=== PATIENT | male | born 1965 | race Caucasian/White ===

== ENCOUNTER 2017-03-01 08:51 | Inpatient (IN) | payer MEDICARE, MEDICAID ==
[~2017-03-01] VITALS: Ht 162.6 cm; Wt 82.8 kg
[~2017-03-01 08:51] MED LIST: ALDACTONE 25MG25 MG PO; ASPIRIN81 MG PO; BUMETANIDE2 MG PO; COREG6.25 MG PO; COUMADIN 5MG TAB5 MG PO; LOSARTAN POTASS50 MG PO; MELOXICAM15 MG PO; METOLAZONE2.5 MG PO; NEURONTIN 300M300 MG PO; NOVOLIN 70/30 710 ML SC; NOVOLOG FLEX100 U/ML SC; PRAVACHOL 40MG40 MG PO; SPIRONOLACTONE25 MG PO; TIZANIDINE HCL2 MG PO; TRAMADOL 50MG T50 M1 PO; TRAZODONE50 MG PO; TYLENOL ES500 MG PO; ZAROXOLYN 2.5M2.5 MG PO; ZOFRAN4 MG PO; [UNRECOGNIZED DRUG - OTHER] IM
[2017-03-01 08:53] VITALS: BP 92/58
--- NOTE | 2017-03-01 09:00 | Emergency Room Report ---
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 Clinical Suspician of Infection? Mental Status: Sepsis Risk: Have you (or family members/close friends) recently traveled outside the [place]? If Yes, where/when: Have you had exposure to infectious disease within the past month? TB? Other? Specify: Source patient, EMS Exam Limitations no limitations Comment Pt is here in the ER via EMS from assisted living. Pt was sitting getting ready to have breakfast when he felt lightheaded and had a brief syncopal episode. No seizure activity. BS normal. No chest pain, sob, abdominal pain. Pt noted to have bilateral leg swelling. Pt is not taking any diuretics. He states the swelling has been increasing. No calf pain. No headache. BP 92 systolic in ER. Pt also denies blood in stool and dark stools. Pt has CAD, ND x 3 history, and has a pacer/defibrillator. ALLERGIES Coded Allergies: hydromorphone (Mild, 02/19/17) Home Medications Reported Medications Aspirin 81 MG PO DAILY Bumetanide 2 MG PO DAILY Losartan Potassium (Losartan 25MG) 25 MG PO DAILY Meloxicam (Meloxicam 15MG) 15 MG PO DAILY Metolazone 2.5 MG PO DAILY PRAVASTATIN SODIUM (Pravastatin Sodium) 40 MG PO QHS Trazodone Hcl (Trazodone HCl) 50 MG PO QHS ONDANSETRON HCL (Zofran 4MG Tab) 4 MG PO TIDP Gabapentin (Neurontin 300MG) 300 MG PO TID Insulin Aspart, Recombinant (Novolog Flexpen) 40 UNITS SC DAILY Pioglitazone (Actos 15MG) 15 MG PO DAILY Ins Asp-Prt 70/Asp 30(Nvlogmx) (Novolog Mix 70-30 Flexpen Syrn) 25 UNITS SC QPM Discontinued Reported Medications TRAMADOL HCL (Tramadol) 100 MG PO Q6HP PRN PAIN History Medical History General CAD? No Angina: Yes ND: Yes Hypertension? Yes Hyperlipidemia? Yes CHF? Yes DVT? No PE? No COPD? No Asthma? No Anemia? No GERD? No Gastric ulcers? No GI Bleed? No Hernia? No Thyroid Problems? No Hypothyroidism? No CVA? Yes Seizures? No Diabetes? Yes Insulin Dependent: Yes Insulin Pump: No Home FSBS? Yes Renal Insuffiency? No End Stage Renal Disease? No UTI? No Stones? No BPH? No GB Disease: No Nephritic Syndrome? No Asplenia? No Hepatitis? No Sickle Cell Disease? No Arthritis? No Migraines? No Cataracts? No Glaucoma? No MRSA? No HIV? No TB? No Anxiety? No Depression? No Cancer? No More? No Immunization Hx DT/Tetanus > 10 YRS Pneumonia Never Had Surgical Hx Previous Surgery?Y Hernia Repair PACEMAKER/DEFIBRILATOR Family History Family Hx Diabetes Yes CAD Yes Hypertension Yes Hyperlipidemia Yes Cancer No TB No Social History Smoking Hx Smoker: Unknown if Ever Smoked Alcohol Alcohol: No Review of Systems All Other Systems Reviewed and Negative Constitutional weakness Eyes denies no symptoms reported ENT denies: no symptoms reported. Respiratory denies no symptoms reported Cardiovascular denies no symptoms reported Gastrointestinal denies no symptoms reported Genitourinary denies: no symptoms reported. Musculoskeletal see HPI, other (bilateral leg swelling) Skin denies no symptoms reported Psychiatric/Neurological see HPI, other (passed out) Physical Exam Vital Signs Vital Signs Date Time Temp Pulse Resp B/P Pulse O2 O2 Flow FiO2 Ox Delivery Rate 03/01 1254 98.6 61 16 102/42 96 2 03/01 1214 98.6 64 16 97/55 96 2 03/01 1128 75 20 119/76 98 03/01 1000 98.6 65 16 101/55 96 2 03/01 0925 98.6 76 18 94/56 97 2 03/01 0912 93 03/01 0853 98.6 80 18 92/58 93 - WBC >12,000 or <4,000 or 10% bands? 2 or more SIRS Criteria Met? B/P:94/ MAP:69 Creatinine >2.0? UA output<0.5ml/kg/hr for 2 hrs? Platelet count >100,000? Lactate >2.0mmol/1? INR >1.2 or PTT > than 60 sec? Evidence of Organ Dysfunction? Provider documented clinical suspician of infection? N Sepsis Criteria Count: 0 Sepsis Risk: Low Sepsis Risk General Appearance no apparent distress Eye Exam - bilateral eye PERRL, bilateral eye EOMI, bilateral eye pale conjunctivae Ear, Nose, Throat hearing grossly normal, normal ENT inspection Neck normal inspection, supple Respiratory Status Yes: trachea midline, chest symmetrical. No: respiratory distress, productive cough. Lung Sounds bilateral: normal breath sounds, lungs clear. 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 No Results/Orders Laboratory Tests 03/01/17 1130: Urine Color YELLOW, Urine Appearance CLEAR, Urine pH 6.0, Ur Specific [place] 1.020, Urine Protein 1+ H, Urine Ketones NEGATIVE, Urine Blood NEGATIVE, Urine Nitrate NEGATIVE, Urine Bilirubin NEGATIVE, Urine Urobilinogen 1.0, Ur Leukocyte Esterase NEGATIVE, Urine RBC 3-5, Urine WBC 5-10, Ur Squamous Epith Cells OCC, Urine Bacteria 2+, Urine Glucose NEGATIVE 03/01/17 0908: Creatine Kinase 163, CK and CKMB Interp 0.6, Troponin I < 0.02, B-Natriuretic Peptide 19, PT 12.2 H, INR 1.14 H 03/01/17 0908: Sodium 135 L, Potassium 3.8, Chloride 99, Carbon Dioxide 29, BUN 47 H, Creatinine 2.2 H, Estimated Creat Clear 50, Estimated GFR (MDRD) 32, Glucose 108 H, Calcium 9.2, Magnesium 2.2, Total Bilirubin 0.8, AST 38 H, ALT 44, Alkaline Phosphatase 108, Total Protein 7.6, Albumin 2.4 L, Globulin 5.2 H, Albumin/Globulin Ratio 0.5 L, D-Dimer 4880 *H, WBC 10.6, RBC 3.44 L, Hgb 10.2 L, Hct 30.6 L, MCV 88.9, RDW 12.6, Plt Count 333, MPV 6.6 L, Gran % 82.0 H, Gran # 8.7 H, Lymphocytes % 9.8 L, Monocytes % 6.5, Eosinophils % 1.3, Basophils % 0.4, Lymphocytes # 1.0, Monocytes # 0.7, Eosinophils # 0.1, Basophils # 0.1, PUBS MCHC 33.4, MCH 29.7, Stool Occult Blood NEGATIVE Current Medication Orders Sig/Manish Start time Last Medication Dose Route Stop Time Status Admin Sodium Chloride 1,000 ML .STK-MED ONE 03/01 0919 DC IV Sodium Chloride 10 ML PRN PRN 03/01 0915 AC IV 03/02 0901 Sodium Chloride 1,000 ML .Q1H1M 03/01 0915 DC 03/01 IV 03/01 1015 0919 Orders Procedure Date/time Status Decision to admit 03/01 1319 Active CULTURE, URINE 03/01 1130 Active VENOUS LOWER EXT AZCK 03/01 1021 Complete 12 LEAD EKG-BESSON (INITIAL) 03/01 0905 Active OXYGEN PER NURSE 03/01 0905 Active URINALYSIS/COMPLETE 03/01 0905 Complete TROPONIN I 03/01 0905 Complete D-DIMER 03/01 0905 Complete CPK 03/01 0905 Complete CKMB 03/01 0905 Complete BRAIN NATRIURETIC PEPTIDE 03/01 0905 Complete ELECTROCARDIOGRAM REQUEST 03/01 0902 Active IV SALINE LOCK 03/01 0902 Active STOOL OCCULT BLOOD 03/01 0902 Active PROTHROMBIN TIME 03/01 0902 Complete MAGNESIUM 03/01 0902 Complete CBC WITH AUTO DIFF 03/01 0902 Complete CHEM 12 PROFILE 03/01 0902 Complete ECHO ADULT 03/01 UNK Active CM/EKG 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 of ischemic chgs Complicating Factors Comment 13:17 All labs, PCXR and EKG reviewed. Case discussed with cardiology YRN Flores from [facility] who did a consult on this pt in the ER. I also discussed case with YRN Conteh and pt will be admitted to Dr. Carrera to observation with telemetry who is covering for Dr. Bowles. Pt having VQ scan now. Cardiology ordered an echocardiogram for today. Pt aware of results of work up, diagnosis and care plan. He agrees, understands and all questions answered. 15:59 VQ scan negative for PE. Departure Departure Time of Disposition 1321 Disposition Still a Patient Clinical Impression Primary Impression: Syncope Qualifiers: Syncope type: unspecified Qualified Code: R55 - Syncope and collapse Secondary Impressions: Cardiomyopathy Chronic anemia Chronic renal insufficiency Qualifiers: Chronic kidney disease stage: unspecified stage Qualified Code: N18.9 - Chronic kidney disease, unspecified Elevated d-dimer Peripheral edema Shortness of breath Condition STABLE Referrals [facility] Discharge Counseling Counseled pt/family regarding diagnosis, test results, Need for admission. ED Critical Care Critical Care No at 1600
[2017-03-01 09:25] LABS: HEMOGLOBIN 10.2 g/dL (14.1-18.0); LYMPH % 9.8 % (10-50)
[2017-03-01 09:26] LABS: STOOL OCCULT BLOOD NEGATIVE (NEG)
[2017-03-01] MEDS ORDERED: ACTOS 15MG TABL15 MG PO (09:38)
[2017-03-01] MEDS ORDERED: NOVOLOG MI100 UNITS1 SC (09:42)
[2017-03-01 11:43] LABS: URINE BILIRUBIN - DIPSTICK NEGATIVE (NEG); URINE BLOOD NEGATIVE (NEG)
[2017-03-01 11:55] LABS: URINE SQUAMOUS CELLS OCC #/hpf (OCC)
--- NOTE | 2017-03-01 11:56 | CARDIOVASCULAR REPORT ---
"Venous Exam Indications: 729.5 Pain in limb. 782.3 Edema. IMPRESSIONS 1. There is no evidence of significant Reflux. 2. No evidence of deep or superficial vein thrombosis involving the right lower extremity and left lower extremity Complete lower extremity venous duplex evaluation. Doppler flow study including spectral analysis, color and garcia scale imaging. Location: Emergency department. Patient status: Emergency department. Tables: Venous flow and imaging: + +-------+ + + |Location |Overall|Flow properties |Comments | + +-------+ + + |Right common femoral |Patent |Normal phasicity; | | | | |spontaneous; normal | | | | |augmentation; | | | | |compressible | | + +-------+ + + |Right saphenofemoral |Patent |Compressible | | |junction | | | | + +-------+ + + |Right profunda femoral|Patent |Compressible | | + +-------+ + + |Right femoral |Patent |Normal phasicity; | | | | |spontaneous; normal | | | | |augmentation; | | | | |compressible; no | | | | |reflux | | + +-------+ + + |Right greater |Patent |Normal phasicity; | | |saphenous | |spontaneous; normal | | | | |augmentation; | | | | |compressible | | + +-------+ + + |Right popliteal |Patent |Normal phasicity; | | | | |spontaneous; normal | | | | |augmentation; | | | | |compressible | | + +-------+ + + |Right posterior tibial|Patent |Compressible |Difficult to image| + +-------+ + + |Right peroneal |Patent |Compressible |Difficult to image| + +-------+ + + |Right gastrocnemius |Patent |Compressible | | + +-------+ + + |Right soleal |Patent |Compressible | | + +-------+ + + |Left common femoral |Patent |Normal phasicity; | | | | |spontaneous; normal | | | | |augmentation; | | | | |compressible | | + +-------+ + + |Left saphenofemoral |Patent |Compressible | | |junction | | | | + +-------+ + + |Left profunda femoral |Patent |Compressible | | + +-------+ + + |Left femoral |Patent |Normal phasicity; | | | | |spontaneous; normal | | | | |augmentation; | | | | |compressible | | + +-------+ + + |Left greater saphenous|Patent |Normal phasicity; | | | | |spontaneous; normal | | | | |augmentation; | | | | |compressible | | + +-------+ + + |Left popliteal |Patent |Normal phasicity; | | | | |spontaneous; normal | | | | |augmentation; | | | | |compressible | | + +-------+ + + |Left posterior tibial |Patent |Compressible |Difficult to image| + +-------+ + + |Left peroneal |Patent |Compressible |Difficult to image| + +-------+ + + |Left gastrocnemius |Patent |Compressible | | + +-------+ + + |Left soleal |Patent |Compressible | | + +-------+ + + (Report amended ) Electronically signed by: Javier Solis [id number]"
--- NOTE | 2017-03-01 12:20 | CONSULT NOTE ---
Standard Demographics Patient Demo Date of Consultation: 03/01/17 Referring Provider: Alexia Carrera MD Reason for Consultation: Syncope, CAD, AICD PRIMARY DIAGNOSIS: Syncope Problem list Problem list: 1. CAD A. History of NV's X 3. Cardiac cath about 2009 without need for intervention per patient. B. [place] AICD placed about 2009 C. History of congestive heart failure 2. Hypertension 3. Hyperlipidemia 4. Diabetes mellitus History of present illness: History of present illness: Pt is here in the ER via EMS from assisted living. Pt was sitting getting ready to have breakfast when he felt lightheaded and had a brief syncopal episode. No seizure activity. BS normal. No chest pain, sob, abdominal pain. Pt noted to have bilateral leg swelling. Pt is not taking any diuretics. He states the swelling has been increasing. No calf pain. No headache. BP 92 systolic in ER. Pt also denies blood in stool and dark stools. Pt has CAD, NV x 3 history, and has a pacer/defibrillator. Above per ER physician. Patient denies any recent chest pain but does complain of recent increase in lower extremity edema and shortness of breath which correlates to recent decrease in diuretic therapy. He does relate a previous history of congestive heart failure. Patient does follow with cardiology with last appointment approximately July or August of last year. Past Medical History: General: Hypertension Yes CVA Yes Seizures No TB No COPD No Asthma No Diabetes Yes Insulin Dependent Yes Insulin Pump No Angina Yes NV Yes Hyperlipidemia Yes Urinary No Cancer No Rheumatic H.D. No Ulcers No MRSA No GB Disease No Past Surgical HX: Previous Surgery?Y Hernia Repair PACEMAKER/DEFIBRILATOR Allergies Coded Allergies: hydromorphone (Mild, 02/19/17) Home medications: Reported Medications Aspirin 81 MG PO DAILY Bumetanide 2 MG PO DAILY Losartan Potassium (Losartan 25MG) 25 MG PO DAILY Meloxicam (Meloxicam 15MG) 15 MG PO DAILY Metolazone 2.5 MG PO DAILY PRAVASTATIN SODIUM (Pravastatin Sodium) 40 MG PO QHS Trazodone Hcl (Trazodone HCl) 50 MG PO QHS ONDANSETRON HCL (Zofran 4MG Tab) 4 MG PO TIDP Gabapentin (Neurontin 300MG) 300 MG PO TID Insulin Aspart, Recombinant (Novolog Flexpen) 40 UNITS SC DAILY Pioglitazone (Actos 15MG) 15 MG PO DAILY Ins Asp-Prt 70/Asp 30(Nvlogmx) (Novolog Mix 70-30 Flexpen Syrn) 25 UNITS SC QPM Discontinued Reported Medications TRAMADOL HCL (Tramadol) 100 MG PO Q6HP PRN PAIN Current Medications: Current Medications Sodium Chloride 1,000 ML .STK-MED ONE IV (DC) Sodium Chloride 10 ML PRN PRN IV Sodium Chloride 1,000 ML .Q1H1M IV (DC) Immunization HX DT/Tetanus > 10 YRS Pneumonia Never Had Family history Family HX Family Hx Insignificant No Diabetes Yes CAD Yes Hypertension Yes Hyperlipidemia Yes Cancer No TB No Social Hx: Smoking HX Tobacco No Alcohol Alcohol: No Hx of Drug Use Drug Use? No Review of systems: Constitutional weakness. Respiratory SOB with excertion. Cardiovascular see HPI, edema Gastrointestinal/Abdominal No no symptoms reported Genitourinary No: no symptoms reported. Musculoskeletal see HPI. Neurological No: no symptoms reported. Exam: Admission Vital Signs: 1ST Vital Signs Result Date Time Pulse Ox 93 03/01 0853 B/P 92/58 03/01 0853 Temp 98.6 03/01 0853 Pulse 80 03/01 0853 Resp 18 03/01 0853 O2 Flow Rate 2 03/01 0925 Last Vital Signs: Vital Signs Result Date Time Pulse Ox 98 03/01 1128 B/P 119/76 03/01 1128 Pulse 75 03/01 1128 Resp 20 03/01 1128 O2 Flow Rate 2 03/01 1000 Temp 98.6 03/01 1000 Exam General appearance: alert, awake, no acute distress Neck: no carotid bruit, enlarged neck precludes adequate visualization of neck veins. Cardiovascular: regular rate & rhythm, physiologic split S2 noted on end expiration Respiratory: decreased breath sounds but without wheezing. Faint basilar rales versus atelectasis ABD: soft, no tenderness Extremities: moves all, 2-3+ pitting edema of the lower extremities with palpable dorsalis pedis pulses. Neuro: alert, intact, oriented Laboratory data: Laboratory Tests 03/01/17 1130: Urine Color YELLOW, Urine Appearance CLEAR, Urine pH 6.0, Ur Specific [place] 1.020, Urine Protein 1+ H, Urine Ketones NEGATIVE, Urine Blood NEGATIVE, Urine Nitrate NEGATIVE, Urine Bilirubin NEGATIVE, Urine Urobilinogen 1.0, Ur Leukocyte Esterase NEGATIVE, Urine RBC 3-5, Urine WBC 5-10, Ur Squamous Epith Cells OCC, Urine Bacteria 2+, Urine Glucose NEGATIVE 03/01/17 0908: Creatine Kinase 163, CK and CKMB Interp 0.6, Troponin I < 0.02, B-Natriuretic Peptide 19, PT 12.2 H, INR 1.14 H 03/01/17 0908: Sodium 135 L, Potassium 3.8, Chloride 99, Carbon Dioxide 29, BUN 47 H, Creatinine 2.2 H, Estimated Creat Clear 50, Estimated GFR (MDRD) 32, Glucose 108 H, Calcium 9.2, Magnesium 2.2, Total Bilirubin 0.8, AST 38 H, ALT 44, Alkaline Phosphatase 108, Total Protein 7.6, Albumin 2.4 L, Globulin 5.2 H, Albumin/Globulin Ratio 0.5 L, D-Dimer 4880 *H, WBC 10.6, RBC 3.44 L, Hgb 10.2 L, Hct 30.6 L, MCV 88.9, RDW 12.6, Plt Count 333, MPV 6.6 L, Gran % 82.0 H, Gran # 8.7 H, Lymphocytes % 9.8 L, Monocytes % 6.5, Eosinophils % 1.3, Basophils % 0.4, Lymphocytes # 1.0, Monocytes # 0.7, Eosinophils # 0.1, Basophils # 0.1, PUBS MCHC 33.4, MCH 29.7, Stool Occult Blood NEGATIVE Microbiology Date/Time Procedure - Status Source Growth 03/01 1130 Urine Culture - RECD URINE CC Plan: Assessment: 1. Syncopal episode. No evidence of ACS or ventricular arrhythmias as etiology. 2. Presumed ischemic cardiomyopathy with automatic implantable cardiac defibrillator placement in the past. Possible CHF with increased LE edema. Check CXR and BNP. No evidence of acute coronary syndrome. 3. CKD, stage III, Cr 2.2 with GFR 32. 4. Diabetes mellitus with proteinuria. 5. History of pulmonary embolus. Patient has an elevated d-dimer today. Lower extremity venous Doppler has been ordered. A VQ scan has been ordered as well. 6. BiVentricular AICD interrogated. No ventricular arrhythmias noted. Device functioning appropriately. No defibrillator firings noted. 7. Anemia Recommendations: 1. Will obtain an echocardiogram to evaluate LEFT ventricular ejection fraction. 2. LE venous dopplers pending. 3. Workup for pulmonary embolus is in progress. 4. Resume diuretics with close monitoring of renal status. 5. Cardiac status stable at this time. at 1355
--- NOTE | 2017-03-01 15:16 | RADIOLOGY REPORT PS360 ---
NUC LUNG VENT PERFUSION HISTORY: Elevated d-dimer, syncopal episode RULE OUT PE ORDERING PHYSICIAN: Mann Carrera MD PATIENT AGE: 51 years COMPARISON: Radiograph same day. DOSE: 34.0 mCi technetium DTPA inhaled 7.55 mCi technetium MAA IV FINDINGS: Homogeneous activity is present within the lung on both the ventilation and perfusion images. No mismatch or segmental defects are evident. IMPRESSION: Within normal limits, No evidence of pulmonary embolus
--- NOTE | 2017-03-01 15:17 | RADIOLOGY REPORT PS360 ---
CHEST(2 VIEWS-NOT PORTABLE) HISTORY: ELEVATED D DIMER, SYNCOPAL EPISODE ORDERING PHYSICIAN: Mann Carrera MD PATIENT AGE: 51 years COMPARISON: 02/22/2017 FINDINGS: Normal heart size. Cardiac pacemaker device is present. No evidence of CHF. Lungs are clear. No acute bony anomalies.. The lungs are clear without infiltrates, suspicious nodules, or pleural effusions. No acute bony abnormalities. IMPRESSION: No change with no acute finding. Cardiac pacemaker device remains in place
[2017-03-01 17:00] VITALS: BP 131/85
[2017-03-01 17:32] VITALS: BP 132/72
[2017-03-01 20:10] VITALS: BP 147/66
[2017-03-01 20:29] VITALS: BP 147/66
[2017-03-02] VITALS (8 sets, daily range): BP systolic 104–159; BP diastolic 55–76
[2017-03-02 08:58] LABS: HEMOGLOBIN 9.5 g/dL (14.1-18.0); LYMPH # 0.9 K/mm3 (0.7-4.5); LYMPH % 9.5 % (10-50)
--- NOTE | 2017-03-02 09:16 | PHARMACY CLINIC NOTE ---
Patient Demographics Patient Demographics Admission date: 03/01/17 Date: 03/02/17 Time: 0915 Allergies Coded Allergies: hydromorphone (Mild, 02/19/17) HEIGHT- FT: 5 IN: 4.00 K.621 VTE General Information Labs: Laboratory Tests 03/02 0850 Hematology Hgb (14.1 - 18.0 g/dL) 9.5 L Hct (42.0 - 52.0 %) 29.0 L Plt Count (142 - 424 K/mm3) 313 Disclaimer The following section includes nursing documentation that has been pulled in for pharmacy review. Patient's VTE score: 5 Patient's VTE Risk: LOW RISK Clinical trial participant? No VTE prophylaxis [id number] VTE prophylaxis ordered? Yes Type of prophylaxis/treatment: KURT at 0915
[2017-03-02 09:25] LABS: BUN 34 mg/dL (7-18); GFR (ESTIMATED) 49 ML/MIN (>60)
--- NOTE | 2017-03-02 09:32 | HISTORY AND PHYSICAL REPORT ---
Demographics: Admit date: 03/02/17 Chief complaint: dizzyness PRIMARY DIAGNOSIS: Syncope Allergies: Coded Allergies: hydromorphone (Mild, 02/19/17) History of present illness: History of present illness: Pt is here in the ER via EMS from assisted living. Pt was sitting getting ready to have breakfast when he felt lightheaded and had a brief syncopal episode. No seizure activity. BS normal. No chest pain, sob, abdominal pain. Pt noted to have bilateral leg swelling. Pt is not taking any diuretics. He states the swelling has been increasing. No calf pain. No headache. BP 92 systolic in ER. Pt also denies blood in stool and dark stools. Pt has CAD, AK x 3 history, and has a pacer/defibrillator. Above per ER physician. Patient denies any recent chest pain but does complain of recent increase in lower extremity edema and shortness of breath which correlates to recent decrease in diuretic therapy. He does relate a previous history of congestive heart failure. Patient does follow with cardiology with last appointment approximately July or August of last year. Past medical history: Family HX Diabetes Yes CAD Yes Hypertension Yes Hyperlipidemia Yes Cancer No TB No Immunization HX DT/Tetanus 5-10 Years Ago Pneumonia Received In Past TB Test in last year Yes Result Negative General CAD? No Angina: Yes AK: Yes Hypertension? Yes Hyperlipidemia? Yes CHF? Yes DVT? No PE? No COPD? No Asthma? No Anemia? No GERD? No Gastric ulcers? No GI Bleed? No Hernia? No Thyroid Problems? No Hypothyroidism? No CVA? Yes Seizures? No Diabetes? Yes Insulin Dependent: Yes Insulin Pump: No Home FSBS? Yes Renal Insuffiency? No UTI? No Stones? No BPH? No GB Disease: No Nephritic Syndrome? No Asplenia? No Hepatitis? No Sickle Cell Disease? No Arthritis? Yes Migraines? No Cataracts? Yes Glaucoma? No MRSA? Yes HIV? No TB? No Anxiety? No Depression? No Cancer? No More? Yes Additional hx: ARRHYTHMIA Past Surgical HX Previous Surgery?Y Hernia Repair PACEMAKER/DEFIBRILATOR CATARACT SURGERY Current home meds: Reported Medications Aspirin 81 MG PO DAILY Losartan Potassium (Losartan 25MG) 25 MG PO DAILY PRAVASTATIN SODIUM (Pravastatin Sodium) 40 MG PO QHS Trazodone Hcl (Trazodone HCl) 50 MG PO QHS ONDANSETRON HCL (Zofran 4MG Tab) 4 MG PO TIDP Gabapentin (Neurontin 300MG) 300 MG PO TID Insulin Aspart, Recombinant (Novolog Flexpen) 40 UNITS SC DAILY Pioglitazone (Actos 15MG) 15 MG PO DAILY Ins Asp-Prt 70/Asp 30(Nvlogmx) (Novolog Mix 70-30 Flexpen Syrn) 25 UNITS SC QPM Discontinued Reported Medications TRAMADOL HCL (Tramadol) 100 MG PO Q6HP PRN PAIN Social Hx: Smoking HX Tobacco No Are you/the child exposed to second-hand smoke: Yes Alcohol Alcohol: No Hx of Drug Use Drug Use? No Patien't marital status is single Patient's support system is good Review of systems: Constitutional see HPI, fever, weakness. Eyes No: drainage. Ears, Nose, Mouth, Throat No ear pain, No epistaxis, No throat pain Respiratory No: cough. Cardiovascular No chest pain, No palpitations Gastrointestinal/Abdominal see HPI, poor appetite, poor fluid intake Genitourinary No: dysuria, frequency, hesitancy, hematuria. Musculoskeletal No: back pain, joint pain, joint swelling, neck pain. Skin No: rash. Neurological No: headache, seizure disorder. Psychiatric No: depressed. Exam: Lab data for last 24 hours: Laboratory Tests 03/02/17 0850: Sodium 133 L, Potassium 4.1, Chloride 100, Carbon Dioxide 26, BUN 34 H, Creatinine 1.5 H, Estimated Creat Clear 73, Estimated GFR (MDRD) 49, Glucose 219 H, Calcium 8.6, Total Bilirubin 0.7, AST 23, ALT 31, Alkaline Phosphatase 91, Troponin I < 0.02, Total Protein 6.7, Albumin 1.9 L, Globulin 4.8 H, Albumin/Globulin Ratio 0.4 L, WBC 9.8, RBC 3.29 L, Hgb 9.5 L, Hct 29.0 L, MCV 88.2, RDW 12.8, Plt Count 313, MPV 6.7 L, Gran % 79.4, Gran # 7.8, Lymphocytes % 9.5 L, Monocytes % 8.6, Eosinophils % 2.2, Basophils % 0.4, Lymphocytes # 0.9, Monocytes # 0.9, Eosinophils # 0.2, Basophils # 0.0, PUBS MCHC 32.7, MCH 28.8 03/01/17 1130: Urine Color YELLOW, Urine Appearance CLEAR, Urine pH 6.0, Ur Specific [place] 1.020, Urine Protein 1+ H, Urine Ketones NEGATIVE, Urine Blood NEGATIVE, Urine Nitrate NEGATIVE, Urine Bilirubin NEGATIVE, Urine Urobilinogen 1.0, Ur Leukocyte Esterase NEGATIVE, Urine RBC 3-5, Urine WBC 5-10, Ur Squamous Epith Cells OCC, Urine Bacteria 2+, Urine Glucose NEGATIVE Microbiology 03/01 1130 URINE CC: Urine Culture - RECD Admission vital signs: 1ST Vital Signs Result Date Time Pulse Ox 93 03/01 08 B/P 92/58 03/01 08 Temp 98.6 03/01 0853 Pulse 80 03/01 0853 Resp 18 03/01 0853 O2 Flow Rate 2 03/01 0925 O2 Delivery ROOM AIR 03/01 1700 Exam General appearance: alert, awake Eyes: anicteric, PERRLA ENT: dry mucous membranes Neck: no JVD Cardiovascular: regular rate & rhythm, murmur Respiratory: no respiratory distress, diminished breath sounds ABD: soft, no tenderness, no guarding, no organomegaly Genitourinary: no hematuria Extremities: no calf tenderness, edema Musculoskeletal: equal muscle strength Skin: dry Neuro: alert, 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 Chronic renal insufficiency 2. Chronic anemia 3. Elevated d-dimer 4. Syncope 5. IDDM (insulin dependent diabetes mellitus) 6. Peripheral edema 7. UTI (urinary tract infection) Plan: will give iv abx and check cultures at 0932
[2017-03-02] MEDS ORDERED: TYLENOL W/CODEI1 TA2 PO (10:06)
[2017-03-02] MEDS ORDERED: ACETAMINOPHEN500 M3 PO (10:07)
[2017-03-02] MEDS ORDERED: IBUPROFEN 600M600 MG PO (10:07)
[2017-03-02] MEDS ORDERED: IMODIUM 2MG. CAP2 MG PO (10:08)
[2017-03-02] MEDS ORDERED: ROBAFEN DM473 ML PO (10:09)
[2017-03-02] MEDS ORDERED: CARVEDILOL6.25 MG PO (10:09)
[2017-03-02] MEDS ORDERED: FISH OIL CONCEN1 SGL PO (10:10)
[2017-03-02] MEDS ORDERED: FLUTICASONE 50M16 GM (10:10)
--- NOTE | 2017-03-02 11:11 | RADIOLOGY REPORT PS360 ---
PROCEDURE: 2-D M-mode and color Doppler study INDICATIONS FOR THE TEST: Chest pain COPD Heart Murmur Tobacco Smoking Palpitations Fatigue Syncope Edema Hypertension+Diabetes Mellitus+ Rheumatic Fever SOB ARGUETA Obesity Hyperlipidemia+ Family History HD Additional History chf, pacer/defib, mi PATIENT INFORMATION HEIGHT: 64 WEIGHT:195 GENDER: Male B/P:92/58 2-D/M-MODE INTERPRETATION: 2-D MEASUREMENTS OBSERVED VALUES IN CMS Right Ventricular Dimension (RVDd) 1.6 Interventricular Septum (Thickness)(IVsd) 0.9 Left Ventricular Internal Dimensions(LVIDd) 5.2 Left Ventricular Posterior Wall (Thickness)(LVPWd) 0.9 Aortic Root 3.1 Aortic Cusp Separation 2.5 Left Atrial Dimensions (LAD) 3.6 2D 1. The left atrium is mildly enlarged, left ventricle is normal size, there is no concentric left ventricular hypertrophy, visually estimated ejection fraction 50% with no obvious regional wall motion abnormality, there is abnormal septal motion. 2. The right atrium and right ventricle are relatively normal size and function, there is a catheter noted in the right atrium and right ventricle which is likely a pacemaker lead. 3. The aortic valve is minimally thickened and calcified. 4. The mitral valve leaflets are minimally thickened, there is no mitral stenosis. 5. The tricuspid valve is structurally normal. 6. The pulmonic valve is not well visualized. 7. Small circumferential pericardial effusion noted . DOPPLER INTERROGATION: Doppler interrogation of the aortic mitral and tricuspid valvular presence of mild mitral and tricuspid regurgitation, tricuspid regurgitant jet velocity is insufficient for calculation of the right ventricular systolic pressure, tissue Doppler is inconclusive. CONCLUSION: 1. Normal left ventricular size, visually estimated ejection fraction 50% with no obvious regional wall motion abnormality, there is abnormal septal motion. 2. Mild mitral and tricuspid regurgitation. 3. There is small circumferential pericardial effusion noted
[2017-03-03] VITALS (8 sets, daily range): BP systolic 132–156; BP diastolic 68–87
[2017-03-03 06:42] LABS: LYMPH # 1.1 K/mm3 (0.7-4.5); LYMPH % 10.6 % (10-50)
[2017-03-03 06:44] LABS: HEMOGLOBIN 10.6 g/dL (14.1-18.0)
--- NOTE | 2017-03-03 09:20 | ACUTE CARE PROGRESS NOTE (QUA) ---
Progress Notes Subjective Date 03/03/17 Time 0917 Note pt doing better Patient/family reports: feeling better Nursing reports: no complaints Objective Findings Last VS-Temp:99.7 B/P:144/87 Pulse:82 Resp:20 SaO2:99 OXYGEN Last weight lbs:187 oz:3 K.907 Method:Bed Scales Exam General appearance: alert Eyes: PERRLA ENT: dry mucous membranes Neck: no JVD Cardiovascular: regular rate & rhythm, murmur Respiratory: no respiratory distress ABD: soft Genitourinary: no hematuria Extremities: moves all Musculoskeletal: equal muscle strength Skin: dry Neuro: alert, family development extension specialist II-XII nml as tested Reviewed: allergies, medications, vital signs, lab results Assessment/Plan Problem List 1. Chronic renal insufficiency 2. Chronic anemia 3. Elevated d-dimer 4. Syncope 5. IDDM (insulin dependent diabetes mellitus) 6. Peripheral edema 7. UTI (urinary tract infection) Patient condition Improving Plan: continue current care This inpt stay is expected to cross 2 MNs from start of care Yes Comments: pt with improvement on abx - at 0920
--- NOTE | 2017-03-03 09:20 | ACUTE CARE PROGRESS NOTE (QUA) ---
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 Chronic renal insufficiency 2. Chronic anemia 3. Elevated d-dimer 4. Syncope 5. IDDM (insulin dependent diabetes mellitus) 6. Peripheral edema 7. UTI (urinary tract infection) Patient condition Improving Plan: continue current care This inpt stay is expected to cross 2 MNs from start of care Yes Comments: pt with improvement on abx - at 0920
--- OUTSIDE RECORDS SUMMARY | 2017-03-03 15:04 | External Medical Summary Rpt ---
Author Author , Organization [employer] Address Unknown Phone Unavailable Purpose Continuity of Care Document - through 2016
--- OUTSIDE RECORDS SUMMARY | 2017-03-03 15:05 | External Medical Summary Rpt ---
Demographics Preferred Language Mongolian Marital Status Unknown Jew Affiliation Unknown Race Unknown Ethnic Group Unknown Author Author , Organization [employer] Address Unknown Phone Unavailable Purpose Continuity of Care Document - through 2016 Immunization No patient found.
--- OUTSIDE RECORDS SUMMARY | 2017-03-03 15:05 | External Medical Summary Rpt ---
Author Author [employer], [employer] Organization [employer] Address Unknown Phone Unavailable
--- OUTSIDE RECORDS SUMMARY | 2017-03-03 15:05 | External Medical Summary Rpt ---
Demographics Preferred Language Yoruba Marital Status Unknown Orthodoxy Affiliation Unknown Race Unknown Ethnic Group Unknown Author Author , Organization [employer] Address Unknown Phone Unavailable Purpose Continuity of Care Document - through 2016 Immunization No patient found.
--- OUTSIDE RECORDS SUMMARY | 2017-03-03 15:05 | External Medical Summary Rpt ---
Demographics Preferred Language Occitan Marital Status Unknown Anabaptist Affiliation Unknown Race Unknown Ethnic Group Unknown Author Author , Organization [employer] Address Unknown Phone Unavailable Purpose Continuity of Care Document - through 2016 Immunization No patient found.
--- OUTSIDE RECORDS SUMMARY | 2017-03-03 15:05 | External Medical Summary Rpt ---
Demographics Preferred Language Albanian Marital Status Unknown Oriental Orthodox Affiliation Unknown Race Unknown Ethnic Group Unknown Author Author , Organization [employer] Address Unknown Phone Unavailable Purpose Continuity of Care Document - through 2016 Immunization No patient found.
--- OUTSIDE RECORDS SUMMARY | 2017-03-03 17:01 | External Medical Summary Rpt ---
Demographics Preferred Language Slovak Marital Status Unknown Mosque Affiliation Unknown Race Unknown Ethnic Group Unknown Author Author , Organization [employer] Address Unknown Phone Unavailable Purpose Continuity of Care Document - through 2016 Immunization No patient found.
--- OUTSIDE RECORDS SUMMARY | 2017-03-03 17:01 | External Medical Summary Rpt ---
Demographics Preferred Language Albanian Marital Status Unknown Scientology Affiliation Unknown Race Unknown Ethnic Group Unknown Author Author , Organization [employer] Address Unknown Phone Unavailable Purpose Continuity of Care Document - through 2016 Immunization No patient found.
[2017-03-04] VITALS (8 sets, daily range): BP systolic 130–150; BP diastolic 76–83
--- NOTE | 2017-03-04 09:06 | ACUTE CARE PROGRESS NOTE (QUA) ---
Progress Notes Subjective Date 03/04/17 Time 0900 Patient/family reports: feeling better, no complaints Nursing reports: alert Objective Findings Last VS-Temp:100.6 B/P:145/76 Pulse:78 Resp:18 SaO2:97 ROOM AIR Last weight lbs:186 oz:9 K.623 Method:Bed Scales Exam General appearance: normal appearance, alert, no acute distress Eyes: normal exam ENT: normal exam Neck: normal inspection, full range of motion Cardiovascular: normal exam, regular rate & rhythm, normal peripheral pulses Respiratory: normal exam, clear to auscultation, good air movement, no respiratory distress ABD: normal exam, soft, no tenderness Genitourinary: normal voiding & quantity Extremities: normal exam, warm, RT WRIST IN SPLINT Musculoskeletal: normal exam Skin: normal exam, intact, warm Neuro: normal exam, alert, intact Reviewed: allergies, medications, vital signs, lab results, radiology report Assessment/Plan Problem List 1. Chronic renal insufficiency Qualifiers: Chronic kidney disease stage: unspecified stage Qualified Code: N18.9 - Chronic kidney disease, unspecified 2. Chronic anemia 3. Elevated d-dimer 4. Syncope Qualifiers: Syncope type: unspecified Qualified Code: R55 - Syncope and collapse 5. IDDM (insulin dependent diabetes mellitus) 6. Peripheral edema 7. UTI (urinary tract infection) Patient condition Stable Plan: order additional tests This inpt stay is expected to cross 2 MNs from start of care Yes Comments: Plan: Repeat blood cultures, cardiology to evaluate heArt valves to look for source of fever will do straight cath to evaluate possible UTI. CT to evaluate entire [id number] protein and sedimentation rate elevated. Rounded with Dr. Carrera Antibiotic Stewardship (2) Current Culture Results Microbiology 03/04 UNK BLOOD: Anaerobic Blood Culture - ORD 03/04 UNK BLOOD: Aerobic Blood Culture - ORD 03/01 1130 URINE CC: Urine Culture - COMP at 0905
[2017-03-04 10:15] LABS: URINE BILIRUBIN - DIPSTICK NEGATIVE (NEG); URINE BLOOD TRACE-LYSED (NEG)
--- NOTE | 2017-03-04 12:14 | RADIOLOGY REPORT PS360 ---
CT CERVICAL SPINE W/O CONT INDICATION: HIGH SED RATE,C REACTIVE PROTIEN ORDERING PHYSICIAN: Mann Carrera MD PATIENT AGE: 51 years COMPARISON: None TECHNIQUE: Axial images are obtained without contrast. Sagittal and coronal reformatted images are reviewed as well. FINDINGS: There is normal alignment. No fracture or dislocation is evident. No lytic or blastic change. Facet arthrosis is present on the right at C4-C5 with mild degenerative disc disease at that level. There is no evidence of discitis. No lytic lesions are evident no paravertebral or paraspinal abscess. Lung apices are clear IMPRESSION: 1. No evidence of discitis or other acute abnormality. 2. Mild facet arthritic changes on the right with mild degenerative disc disease at C4-C5
--- NOTE | 2017-03-04 12:17 | RADIOLOGY REPORT PS360 ---
CT THORACIC SPINE W/O CONTRAST INDICATION: HIGH SED RATE,C REACTIVE PROTIEN ORDERING PHYSICIAN: Mann Carrera MD PATIENT AGE: 51 years COMPARISON: None TECHNIQUE: Axial images are obtained without contrast. Sagittal and coronal reformatted images are reviewed as well. FINDINGS: Normal alignment. No fracture or dislocation. No lytic or blastic change. No evidence of discitis or vertebral osteomyelitis. The surrounding lung anthony are clear. No pleural effusion or mediastinal mass evident. Artifact is present from cardiac pacemaker device. IMPRESSION: Negative CT thoracic spine.
--- NOTE | 2017-03-04 12:21 | RADIOLOGY REPORT PS360 ---
CT LUMBAR SPINE W/O CONTRAST CLINICAL INDICATION: HIGH SED RATE,C REACTIVE PROTIEN ORDERING PHYSICIAN: Mann Carrera MD PATIENT AGE: 51 years COMPARISON: None TECHNIQUE:Axial, sagittal, and coronal images are generated and reviewed without contrast COMPARISON: None FINDINGS:There is normal alignment. The disc spaces are well-preserved. No lytic or blastic changes evident. No evidence of discitis or osteomyelitis. No significant degenerative change. There is minimal bulging disc at L4-L5. There is some minimal stranding of the fat along the anterior lateral aspect of the left iliopsoas muscle. This is nonspecific and incompletely imaged. IMPRESSION: 1. Negative CT lumbar spine. No evidence of discitis or osteomyelitis. 2. Minimal bulging disc L4-L5. 3. Minimal stranding in the fat along the anterolateral aspect of the left iliopsoas region which is of questionable clinical significance
--- NOTE | 2017-03-04 13:52 | ACUTE CARE PROGRESS NOTE (QUA) ---
Progress Notes Subjective Date 03/04/17 Time 1343 Note 51 yo WM in bed in NAD. No chest pain complaints. Still having low grade fever despite antibiotics and no growth on blood cultures after 48 hrs. Objective Findings Last VS-Temp:99.8 B/P:133/79 Pulse:89 Resp:18 SaO2:94 ROOM AIR Last weight lbs:186 oz:9 K.623 Method:Bed Scales Exam General appearance: alert, awake, no acute distress Cardiovascular: regular rate & rhythm Respiratory: diminished breath sounds Extremities: moves all, edema Neuro: alert, intact, oriented Reviewed: medications, vital signs, lab results Assessment/Plan Problem List 1. Chronic renal insufficiency Qualifiers: Chronic kidney disease stage: unspecified stage Qualified Code: N18.9 - Chronic kidney disease, unspecified 2. Chronic anemia 3. Elevated d-dimer 4. Syncope Qualifiers: Syncope type: unspecified Qualified Code: R55 - Syncope and collapse 5. IDDM (insulin dependent diabetes mellitus) 6. Peripheral edema 7. UTI (urinary tract infection) 8. Cardiomyopathy 9. AICD (automatic cardioverter/defibrillator) present Patient condition Stable Plan: Transthoracic echo reviewed...No obvious etiology for fever and elevated ESR and CRP. With patient having an AICD in place, concern for possible lead endocarditis. Will schedule for SAHARA tomorrow. Blood cultures have been repeated today. Urine has been sent for culture also. This inpt stay is expected to cross 2 MNs from start of care Yes at 1351
[2017-03-05] VITALS (15 sets, daily range): BP systolic 120–171; BP diastolic 75–97
[2017-03-05 07:25] LABS: HEMOGLOBIN 10.3 g/dL (14.1-18.0); LYMPH # 1.2 K/mm3 (0.7-4.5); LYMPH % 12.2 % (10-50)
--- NOTE | 2017-03-05 07:55 | ACUTE CARE PROGRESS NOTE (QUA) ---
Progress Notes Subjective Date 03/05/17 Time 0747 Note 51 yo WM in bed in NAD. No complaints overnight. Objective Findings Last VS-Temp:99.1 B/P:150/77 Pulse:86 Resp:20 SaO2:97 ROOM AIR Last weight lbs:186 oz:1 K.397 Method:Bed Scales Exam General appearance: alert, awake, no acute distress Cardiovascular: regular rate & rhythm Respiratory: clear to auscultation Extremities: moves all, Edema has significantly improved. Neuro: alert, intact, oriented Reviewed: medications, vital signs, lab results Assessment/Plan Problem List 1. Chronic renal insufficiency Qualifiers: Chronic kidney disease stage: unspecified stage Qualified Code: N18.9 - Chronic kidney disease, unspecified 2. Chronic anemia 3. Elevated d-dimer 4. Syncope Qualifiers: Syncope type: unspecified Qualified Code: R55 - Syncope and collapse 5. IDDM (insulin dependent diabetes mellitus) 6. Peripheral edema 7. UTI (urinary tract infection) 8. Cardiomyopathy Assessment/Plan: Echo this admission shows EF of 50%. Qualifiers: Cardiomyopathy type: ischemic Qualified Code: I25.5 - Ischemic cardiomyopathy 9. AICD (automatic cardioverter/defibrillator) present Assessment/Plan: BiV AICD in place. Due to fever of unknown origin, will proceed with SAHARA today to evaluate for possible endocarditis. AICD interrogation last week shows nearing end of life replacement indicators (about 9 months left on battery). Patient condition Stable Plan: As above. This inpt stay is expected to cross 2 MNs from start of care Yes at 0721
--- NOTE | 2017-03-05 13:14 | ACUTE CARE PROGRESS NOTE (QUA) ---
Progress Notes Subjective Date 03/05/17 Time 1312 Note doing better Patient/family reports: feeling better Nursing reports: no complaints Objective Findings Last VS-Temp:99.1 B/P:120/80 Pulse:68 Resp:20 SaO2:97 ROOM AIR Last weight lbs:186 oz:1 K.397 Method:Bed Scales Exam General appearance: alert Eyes: anicteric ENT: dry mucous membranes Neck: no JVD Cardiovascular: regular rate & rhythm Respiratory: no respiratory distress ABD: soft Genitourinary: no hematuria Extremities: moves all Musculoskeletal: equal muscle strength Skin: dry Neuro: alert, full stack developer II-XII nml as tested Reviewed: allergies, medications, vital signs, lab results, consult note Assessment/Plan Problem List 1. Chronic renal insufficiency 2. Chronic anemia 3. Elevated d-dimer 4. Syncope 5. IDDM (insulin dependent diabetes mellitus) 6. Peripheral edema 7. UTI (urinary tract infection) 8. Cardiomyopathy 9. AICD (automatic cardioverter/defibrillator) present Patient condition Stable Plan: continue current care This inpt stay is expected to cross 2 MNs from start of care Yes Comments: will see results of addt ct and trans esophageal echo at 1314
--- NOTE | 2017-03-05 13:14 | ACUTE CARE PROGRESS NOTE (QUA) ---
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 Chronic renal insufficiency 2. Chronic anemia 3. Elevated d-dimer 4. Syncope 5. IDDM (insulin dependent diabetes mellitus) 6. Peripheral edema 7. UTI (urinary tract infection) 8. Cardiomyopathy 9. AICD (automatic cardioverter/defibrillator) present Patient condition Stable Plan: continue current care This inpt stay is expected to cross 2 MNs from start of care Yes Comments: will see results of addt ct and trans esophageal echo at 1314
--- NOTE | 2017-03-05 14:31 | Anesthesia Record ---
Anesthesia Record Part I Total IV fluids: 200 EBL (ml): 0 Urine Output: 0 (NOT MEASURED) Units of blood given: 0 B/P: 107/61 % SaO2: 97 Pulse: 82 Resps: 24 Temp: 98 Patient is: Drowsy, Nasal O2, Stable Stable to PACU at: 1420 at 1430
--- NOTE | 2017-03-05 14:37 | Anesthesia Record ---
Anesthesia Record Part II Discharge time: 1450 Destination: Second Floor PACU nurse assessment review? No (IN CARDIAC FRONT SIGHT ATTACHER) Patient is: Awake, Stable Anesthesia complications? Yes at 1432
--- NOTE | 2017-03-05 14:37 | Anesthesia Record ---
Anesthesia Record Part II Discharge time: 1450 Destination: Second Floor PACU nurse assessment review? No (IN CARDIAC MASTER COASTWISE YACHT) Patient is: Awake, Stable Anesthesia complications? Yes at 1438
--- NOTE | 2017-03-05 15:05 | RADIOLOGY REPORT PS360 ---
Transesophageal echocardiogram: Indication for the test: Status post AICD and pacemaker, rule out endocarditis. Procedure: The patient was brought in to the cardiac catheter lab holding area in hemodynamically stable condition, after the informed consent conscious sedation was provided by anesthesiologist, local anesthesia was applied. Transesophageal echocardiogram was performed without any difficulty. Patient tolerated the procedure well. Findings 1. The left atrium is normal size, the left atrial appendage is free of thrombus, there is adequate appendage flow by spectral Doppler. 2. The right atrium is normal size, there is catheter noted in the right atrium and right ventricle which are likely pacemaker lead there is no obvious vegetation seen on the pacemaker leads. 3. The intra-atrial septum is intact, there is no flow across the intra-atrial septum, agitated saline contrast study fails to identify intracardiac shunt. 4. The aortic valve is structurally normal, there is no aortic stenosis or aortic insufficiency. 5. The mitral valve and tricuspid valve is structurally normal, there is no obvious vegetation seen on the valve, there is mild mitral regurgitation present. 6. The pulmonic valve is structurally normal. 7. No significant pericardial effusion noted. 8. The right ventricle is normal size and contractility. 9. The left ventricle is normal size, there is preserved left ventricular systolic function, no obvious regional wall motion abnormality seen in the obtained views. 10. Ascending, arch and descending thoracic aorta is normal. Conclusion 1. Normal left ventricular size preserved left ventricular systolic function. 2. No obvious valvular or vegetation seen on the pacemaker leads. 3. Mild mitral regurgitation. 4. Agitated saline contrast study fails to identify intracardiac shunt. 5. No significant pericardial effusion noted.
[2017-03-06] VITALS (7 sets, daily range): BP systolic 129–153; BP diastolic 74–96
[2017-03-06 06:54] LABS: HEMOGLOBIN 10.1 g/dL (14.1-18.0); LYMPH # 1.4 K/mm3 (0.7-4.5); LYMPH % 15.1 % (10-50)
--- NOTE | 2017-03-06 08:43 | ACUTE CARE PROGRESS NOTE (QUA) ---
Progress Notes Subjective Date 03/06/17 Time 0800 Note 51 yo white male sitting at bedside eating breakfast in no acute distress. Denies any chest pain overnight. Shortness of breath is improved. Lower extremity edema has significantly improved. Objective Findings Last VS-Temp:98.2 B/P:143/74 Pulse:85 Resp:16 SaO2:96 ROOM AIR Last weight lbs:184 oz:2 K.518 Method:Bed Scales Exam General appearance: alert, awake, no acute distress Cardiovascular: regular rate & rhythm, murmur Respiratory: decreased breath sounds generally but improved air movement without wheezing or rales. Extremities: moves all, trace lower extremity edema and noted Neuro: alert, intact, oriented Reviewed: medications, vital signs, lab results Assessment/Plan Problem List 1. Chronic renal insufficiency Qualifiers: Chronic kidney disease stage: unspecified stage Qualified Code: N18.9 - Chronic kidney disease, unspecified 2. Chronic anemia 3. Elevated d-dimer 4. Syncope Qualifiers: Syncope type: unspecified Qualified Code: R55 - Syncope and collapse 5. IDDM (insulin dependent diabetes mellitus) 6. Peripheral edema 7. UTI (urinary tract infection) 8. Cardiomyopathy Assessment/Plan: Transesophageal echocardiogram revealed normal LEFT ventricular ejection fraction. No evidence of endocarditis or inter-atrial defect. Qualifiers: Cardiomyopathy type: ischemic Qualified Code: I25.5 - Ischemic cardiomyopathy 9. AICD (automatic cardioverter/defibrillator) present Assessment/Plan: Automatic implantable cardiac defibrillator interrogated yesterday and is functioning appropriately with no indication of increase in lead impedance. Patient will need a generator replacement within the next 9 months. Patient condition Stable Plan: cardiac status appears stable. Lower extremity edema has improved. No further cardiac workup at this time. We'll see again as needed. Patient states she will follow-up with [facility] upon discharge. This inpt stay is expected to cross 2 MNs from start of care Yes at 0842
--- NOTE | 2017-03-06 08:58 | ACUTE CARE PROGRESS NOTE (QUA) ---
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 Chronic renal insufficiency 2. Chronic anemia 3. Elevated d-dimer 4. Syncope 5. IDDM (insulin dependent diabetes mellitus) 6. Peripheral edema 7. UTI (urinary tract infection) 8. Cardiomyopathy 9. AICD (automatic cardioverter/defibrillator) present Patient condition Stable Plan: continue current care, order additional tests This inpt stay is expected to cross 2 MNs from start of care Yes Comments: will give trial of steroids and check wrist mass at 0857
--- NOTE | 2017-03-06 08:58 | ACUTE CARE PROGRESS NOTE (QUA) ---
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 Chronic renal insufficiency 2. Chronic anemia 3. Elevated d-dimer 4. Syncope 5. IDDM (insulin dependent diabetes mellitus) 6. Peripheral edema 7. UTI (urinary tract infection) 8. Cardiomyopathy 9. AICD (automatic cardioverter/defibrillator) present Patient condition Stable Plan: continue current care, order additional tests This inpt stay is expected to cross 2 MNs from start of care Yes Comments: will give trial of steroids and check wrist mass at 0857
--- NOTE | 2017-03-06 19:48 | RADIOLOGY REPORT PS360 ---
CT EXT.UPPER-RT-W/O CONTRAST CT RIGHT WRIST 3-D by reconstructions images independent workstation -....77 Ordering Physician: Mann Carrera MD Patient Age: 51 years: Male HISTORY recent fall with bilateral wrist pain : Also LYTIC LESION RT ULNAlytic lesion distal ulna seen on previous plain films TECHNIQUE: Helical CT scanning performed through the wrist. In addition to the sagittal and coronal reconstructions. Additional oblique magnified slab reconstructions performed by Dr. Levy on the radiologist independent workstation. 3-D volume rendering images also performed -77 CPT FINDINGS Right Wrist: There is erosive, somewhat destructive appearing lytic lesion involving the distal ulnastyloid.. This extends to the base of the ulnar styloid. It measures 14 mm wide 13 mm AP 8 mm depth slightly irregular margins. Prominent soft tissue swelling is seen about this region. Spanning overall over 2.2 cm cm diameter. Question a 12 mm cyst just medial to it that may draped from this position towards this area of erosion of distal ulna., . If desired consider aspiration of this region either clinically or under fluoroscopic guidance. It questionably could be a large subchondral cyst which can yield surprisingly destructive appearance. Gout should be excluded. Warrants correlation with ESR rheumatoid factor if desired to further evaluate. Consider orthopedic consult as well particularly if pain progresses here. Minimal faint calcification of tracheal fibrocartilage. Minimal chondrocalcinosis. Also involves the scapholunate ligament. Normal carpal relationships otherwise. There is additional 8 mm x 3 mm accessory bone along the dorsal aspect of the navicular seen on sagittal reconstruction views, as well as axial images. It is Is corticated old and does not appear to be current significance.. IMPRESSION Erosive, destructive area is seen at distal ulna & involving ulnar styloid again seen. (It measures up to 14 mm transverse x 13 mm x 8 mm. Question very slight progression even since 02/19/2017.) Prominent surrounding soft tissue swelling about this region also noted. Additional comments in text No discrete acute fracture otherwise at wrist.
--- NOTE | 2017-03-06 23:19 | RADIOLOGY REPORT PS360 ---
WRIST-3 VIEWS-LT Ordering Physician: Mann Carrera MD Patient Age: 51 years: Male HISTORY: LT WRIST MASSfall with wrist pain bilateral TECHNIQUE: 3 views left wrist were reviewed in conjunction with the CT from today FINDINGS Bones well mineralized throughout. Plain film Provides a nice overview & compliment the CT detailed images. There is irregularity at the tip of the ulnar styloid but based on these images as well as today's CT images I favor this is due to subchondral cystic changes rather than fracture. there appear to be small numerous subchondral cystic changes with minimal erosion limited to the ulnar styloid on left. I favor more likely account for this mild irregularity and overall appearance but it difficult to totally exclude a subtle fracture. If there is persistent focal ulnar styloid region consider follow-up study in 7-10 days The lateral view for example there is a slight overhanging edge at the knee lucent area at the posterior margin of irregular ulnar styloid-reflecting the small subchondral cyst or erosion here. Fat plane anterior to the wrist appears normal. Carpal relationships normal. Soft tissue swelling most evident along ulnar aspect of wrist. (Actually patient as very pronounced erosive or cystic changes in this same area involving the opposite, contralateral right distal ulna) IMPRESSION: No discrete acute fracture left wrist . Irregularity at tip of left ulnar styloid I favor more likely reflects cystic changes and erosions here rather than fracture, on both today's plain films & CT left wrist (Also note Similar but much much more extensive erosive irregularity on contralateral right distal ulna. See right wrist support.)
--- NOTE | 2017-03-06 23:36 | RADIOLOGY REPORT PS360 ---
CT EXT.UPPER-LT-W/O CONTRAST CT LEFT WRIST 3-D volume reconstruction images included Ordering Physician: Mann Carrera MD Patient Age: 51 years: Male HISTORY: LEFT WRIST MASSfall with bilateral wrist pain TECHNIQUE: Helical CT scanning performed through the left wrist.. 3-D volume reconstruction images performed reviewed on the radiologist workstation along with altered oblique thickened images in multiple projections performed by Dr. Levy on radiologist workstation-77 CPT COMPARISON No recent nor previous plain left wrist films for comparison currently FINDINGS I see no discrete acute fracture nor dislocation. The navicular has some subchondral cystic features most evident along its dorsal aspect and distal pole. These Best seen on the additional sagittal reconstruction image set performed on by Dr. Levy at radiologist workstation. This up to 6 mm cyst the dorsal aspect appears almost cleft-like on some images. A Smaller 3 mm subchondral cyst or erosion at the dorsal aspect distal pole. There is some irregularity about the ulnar styloid but on detailed thin section images review I believe this more likely reflects subchondral cystic changes and/or erosions here as well - Rather than definitive fracture. Minor nondisplaced fracture unlikely but difficult to exclude given irregularities. If pain focally here should persist consider follow-up 7 next 10 days. Lunate & capitate appears satisfactory. Upper normal scapholunate distance. Joint spaces are actually fairly well maintained at carpal bones with only scant narrowing narrowing first carpal-metacarpal joint.. Chondrocalcinosis most evident triangular fibro-cartilage. & Left evident elsewhere at proximal carpal row IMPRESSION No definitive nor discrete acute fracture of the left wrist. Favor small subchondral cystic changes and/or erosions involving tip of the ulna styloid, most likely account for its irregular appearance.. No definitive fracture. (If there is persistent focal pain here then follow-up 7 next 10 days suggested). Similar less extensive small subchondral cysts at the navicular Only Mild soft tissue swelling left wrist.. Chondrocalcinosis wrist most evident TFCC & proximal carpal row.. .
[2017-03-07 00:17] VITALS: BP 131/70
[2017-03-07 03:38] VITALS: BP 145/83
[2017-03-07 06:52] LABS: HEMOGLOBIN 10.5 g/dL (14.1-18.0); LYMPH # 1.4 K/mm3 (0.7-4.5); LYMPH % 14.7 % (10-50)
[2017-03-07 08:00] VITALS: BP 125/77
[2017-03-07 08:32] VITALS: BP 145/83
[2017-03-07] MEDS ORDERED: ZYVOX600 MG PO ×2 (08:45→09:01)
--- NOTE | 2017-03-07 08:48 | DISCHARGE SUMMARY STANDARD ---
Demographics Admit date: 03/02/17 Discharge date: 03/07/17 History of present illness History of present illness Pt is here in the ER via EMS from assisted living. Pt was sitting getting ready to have breakfast when he felt lightheaded and had a brief syncopal episode. No seizure activity. BS normal. No chest pain, sob, abdominal pain. Pt noted to have bilateral leg swelling. Pt is not taking any diuretics. He states the swelling has been increasing. No calf pain. No headache. BP 92 systolic in ER. Pt also denies blood in stool and dark stools. Pt has CAD, PA x 3 history, and has a pacer/defibrillator. Hospital Course Hospital Course: Syncope and pacemaker-cardiology consult with cardiology workup. SAHARA results:Conclusion 1. Normal left ventricular size preserved left ventricular systolic function. 2. No obvious valvular or vegetation seen on the pacemaker leads. 3. Mild mitral regurgitation. 4. Agitated saline contrast study fails to identify intracardiac shunt. 5. No significant pericardial effusion noted. Patient also has a mass to his wrist and with the high sedimentation rate and C- reactive protein workup was done to evaluate this mass. Consult was done with elva and he will follow him as an outpatient to get a biopsy. ct result:IMPRESSION No definitive nor discrete acute fracture of the left wrist. Favor small subchondral cystic changes and/or erosions involving tip of the ulna styloid, most likely account for its irregular appearance.. No definitive fracture. (If there is persistent focal pain here then follow-up 7 next 10 days suggested). Similar less extensive small subchondral cysts at the navicular Only Mild soft tissue swelling left wrist.. Chondrocalcinosis wrist most evident TFCC & proximal carpal row.. Patient will be discharged back to [facility] and close follow-up with Dr. Kwan and possible biopsy of mass on wrist Discharge diagnoses Problem List 1. Chronic renal insufficiency 2. Chronic anemia 3. Elevated d-dimer 4. Syncope 5. IDDM (insulin dependent diabetes mellitus) 6. Peripheral edema 7. UTI (urinary tract infection) 8. Cardiomyopathy 9. AICD (automatic cardioverter/defibrillator) present Medications Medications: Discharge meds are as noted. Follow up Follow up in office in: 6 DAYS with: ALTAGRACIA PACE, YURI ROBLERO Comment: Follow-up with Dr. Kwan, dr marrufo will round at [facility]. at [id number]
[2017-03-07 11:00] VITALS: BP 145/83
[2017-03-07 18:40] LABS: Antinuclear Antibodies, IFA Negative (.)
== END 2017-03-07 10:55 | disposition home or self-care (01) | DRG 303 ==
LOC: ER 08:51 → 2ND 13:23
PROVIDERS: Emergency Medicine; Internal Medicine Cardiovascular Disease
PROC: B246ZZ4 Ultrasonography of Right and Left Heart, Transesophageal (ICD-10-PCS; principal; 2017-03-05 14:15)
DX: I25.5 Ischemic cardiomyopathy (principal); I10 Essential (primary) hypertension; I25.10 Atherosclerotic heart disease of native coronary artery without angina pectoris; Z95.810 Presence of automatic (implantable) cardiac defibrillator; N18.9 Chronic kidney disease, unspecified; E11.9 Type 2 diabetes mellitus without complications; Z79.4 Long term (current) use of insulin; Z86.711 Personal history of pulmonary embolism
CPT/HCPCS: A9540; A9567; G0378; J1335

== ENCOUNTER 2017-05-07 11:44 | Emergency (ER) | payer MEDICARE, MEDICAID ==
[~2017-05-07] VITALS: Ht 162.6 cm; Wt 76.2 kg
[~2017-05-07 11:44] MED LIST changes: +ACETAMINOPHEN500 M3 PO; +ACTOS 15MG TABL15 MG PO; +CARVEDILOL6.25 MG PO; +FISH OIL CONCEN1 SGL PO; +FLUTICASONE 50M16 GM; +IBUPROFEN 600M600 MG PO; +IMODIUM 2MG. CAP2 MG PO; +NOVOLOG MI100 UNITS1 SC; +ROBAFEN DM473 ML PO; +TYLENOL W/CODEI1 TA2 PO; +ZOFRAN ODT4 MG PO; +ZYVOX600 MG PO
--- OUTSIDE RECORDS SUMMARY | 2017-05-07 12:09 | External Medical Summary Rpt ---
Demographics Preferred Language Syriac Marital Status Unknown Restorationist Affiliation Unknown Race Unknown Ethnic Group Unknown Author Author , Organization [employer] Address Unknown Phone Unavailable Purpose Continuity of Care Document - through 2016 Immunization No patient found.
--- OUTSIDE RECORDS SUMMARY | 2017-05-07 12:09 | External Medical Summary Rpt ---
Demographics Preferred Language Kyrgyz Marital Status Unknown Gnosticism Affiliation Unknown Race Unknown Ethnic Group Unknown Author Author , Organization [employer] Address Unknown Phone Unavailable Purpose Continuity of Care Document - through 2016 Immunization No patient found.
--- OUTSIDE RECORDS SUMMARY | 2017-05-07 12:10 | External Medical Summary Rpt ---
Author Author IRINAAMIRA Dejesus, [employer] Organization [employer] Address Unknown Phone Unavailable Results CRP Observa Value Referen Units Interpr Notes Date tion ce etation Range CRP 0.0 - 0.9 MG/DL High No [facility] 18 informati 2017 7:00 on in AM source data Erythrocyte sedimentation rate by Westergren method Observa Value Referen Units Interpr Notes Date tion ce etation Range Erythrocy 0 - 20 mm/hr High No [place] 18 te informati 2017 2:20 sedimenta on in AM tion rate source by data Westergre n method Comprehensive metabolic 2000 panel in Serum or Plasma Observa Value Referen Units Interpr Notes Date tion ce etation Range Albumin/G 1.1 - 1.8 No Low No [facility] 18 lobulin informati informati 2017 2:20 [Mass on in on in AM ratio] in source source Serum or data data Plasma Albumin 3.4 - 5.0 gm/dL Low No [facility] 18 [Mass/vol informati 2017 2:20 ume] in on in AM Serum or source Plasma data Alkaline 46 - 116 U/L High No [facility] 18 phosphata informati 2017 2:20 se on in AM [Enzymati source c data activity/ volume] in Serum or Plasma Bilirubin 0.2 - 1.0 mg/dL High No [facility] 18 .total informati 2017 2:20 [Mass/vol on in AM ume] in source Serum or data Plasma Urea 7 - 18 mg/dL High No [place] 18 nitrogen informati 2017 2:20 [Mass/vol on in AM ume] in source Serum or data Plasma Calcium 8.5 - mg/dL Low No [facility] 18 [Mass/vol 10.1 informati 2017 2:20 ume] in on in AM Serum or source Plasma data Chloride 98 - 107 mmoL/L Normal No [facility] 18 [Moles/vo informati 2017 2:20 lume] in on in AM Serum or source Plasma data Carbon 21.0 - mmoL/L Normal No Apr 18 dioxide, 32.0 informati 2017 2:20 total on in AM [Moles/vo source lume] in data Serum or Plasma Creatinin 0.70 - mg/dL High No Apr 21 e 1.30 informati 2016 2:20 [Mass/vol on in AM ume] in source Serum or data Plasma Creatinin 50 - 200 ML/MIN Normal No Apr 21 e renal informati 2016 2:20 clearance on in AM source predicted data by Cockcroft -Gault formula Estimated >60 ML/MIN No REFERENCE Apr 21 informati RANGE: 2017 2:20 glomerula on in >60 AM r source ML/MIN/1. filtratio data 73 SQUARE n rate METERSIf (GF this patient is -A merican, then multiply theresult by 1.210. Globulin 1.3 - 3.2 gm/dL High No Apr 21 [Mass/vol informati 2016 2:20 ume] in on in AM Serum source data Glucose 74 - 106 mg/dL High Apr 21 [Mass/vol 2016 2:20 ume] in CRITICAL AM Serum or RESULTS Plasma RESU LTS CALLED TO: BENI PAGAN RN 04/21/17 0250 Kayla Ledezma Potassium 3.5 - 5.1 mmoL/L Normal No Apr 21 informati 2016 2:20 [Moles/vo on in AM lume] in source Serum or data Plasma Sodium 136 - 145 mmoL/L Normal No Apr 21 [Moles/vo informati 2016 2:20 lume] in on in AM Serum or source Plasma data Aspartate 15 - 37 U/L High No Apr 21 alert informati 2016 2:20 aminotran on in AM sferase source [Enzymati data c activity/ volume] in Serum or Plasma Alanine 12 - 78 U/L High No Apr 21 aminotran alert informati 2016 2:20 sferase on in AM [Enzymati source c data activity/ volume] in Serum or Plasma Protein 6.4 - 8.2 gm/dL Normal No Apr 21 [Mass/vol informati 2016 2:20 ume] in on in AM Serum or source Plasma data CBC W Auto Differential panel in Blood Observa Value Referen Units Interpr Notes Date tion ce etation Range Basophils 0 - 0.2 K/MM3 Normal No [place] 18 informati 2016 2:20 [#/volume on in AM ] in source Blood by data Automated count Basophils 0.1 - 2.0 % Normal No [place] 18 /100 informati 2016 2:20 leukocyte on in AM s in source Blood by data Automated count Eosinophi 0.0 - 0.4 K/mm3 Normal No [facility] 18 ls informati 2016 2:20 [#/volume on in AM ] in source Blood by data Automated count Eosinophi 0.1 - % Normal No [place] 18 ls/100 12.0 informati 2016 2:20 leukocyte on in AM s in source Blood by data Automated count Granulocy 1.3 - 8.0 K/mm3 Normal No [facility] 18 denice informati 2016 2:20 [#/volume on in AM ] in source Blood by data Automated count Granulocy 37.0 - % High No [place] 18 denice/100 80.0 informati 2016 2:20 leukocyte on in AM s in source Blood by data Automated count Hematocri 42.0 - % Low No Apr 18 t [Volume 52.0 informati 2016 2:20 on in AM Fraction] source of Blood data Hemoglobi 14.1 - g/dL Low No Apr 18 n 18.0 informati 2016 2:20 [Mass/vol on in AM ume] in source Blood data Lymphocyt 0.7 - 4.5 K/mm3 Low No Apr 18 es informati 2017 2:20 [#/volume on in AM ] in source Unspecifi data ed specimen by Automated count Lymphocyt 10 - 50 % Low No Apr 18 es inform 2017 2:20 [#/volume on in AM ] in source Unspecifi data ed specimen by Automated count Erythrocy 27 - 31.2 pg Normal No [facility] 18 te mean informati 2017 2:20 corpuscul on in AM ar source hemoglobi data n [Entitic mass] Erythrocy 31.8 - g/dl Low No Apr 18 te mean 35.4 informati 2017 2:20 corpuscul on in AM ar source hemoglobi data n concentra tion [Mass/vol ume] by Automated count Erythrocy 82.2 - fl Normal No Apr 18 te mean 97.8 informati 2016 2:20 corpuscul on in AM ar volume source [Entitic data volume] by Automated count Monocytes 0.1 - 1.0 K/mm3 Normal No Apr 18 informati 2017 2:20 [#/volume on in AM ] in source Blood by data Automated count Monocytes 1.7 - 9.3 % Normal No [facility] 18 /100 informati 2017 2:20 leukocyte on in AM s in source Blood by data Automated count Platelet 7.4 - fl Normal No [place] 18 mean 10.4 informati 2016 2:20 volume on in AM [Entitic source volume] data in Blood by Automated count Platelets 142 - 424 K/mm3 No No [place] 18 informati informati 2017 2:20 [#/volume on in on in AM ] in source source Blood data data Erythrocy 4.6 - 6.2 M/mm3 Low No [facility] 18 denice informati 2017 2:20 [#/volume on in AM ] in source Amniotic data fluid Erythrocy 11.5 - % Normal No [place] 18 te 17.5 informati 2017 2:20 distribut on in AM ion width source [Entitic data volume] by Automated count Leukocyte 4.8 - K/MM3 Normal No [facility] 18 s 10.8 informati 2016 2:20 [#/volume on in AM ] in source Blood data Gas panel in Arterial blood Observa Value Referen Units Interpr Notes Date tion ce etation Range Base -2.4-+2.3 MMOL/L High No Apr 9 excess in informati 2017 1:40 Arterial on in PM blood source data Arteria PATIENT No No No No [facility] 9 l UNABLE informa informa informa informa 2017 patency tion in tion in tion in tion in 1:40 PM Wrist source source source source artery data data data data --pre arteria l punctur e Bicarbona 22.0 - MMOL/L High No Apr 9 te 26.0 informati 2017 1:40 [Moles/vo on in PM lume] in source Arterial data blood Oxygen No No No No [facility] 9 content informati informati informati informati 2017 1:40 in on in on in on in on in PM Arterial source source source source blood data data data data Carbon 35.0 - MMHG Normal No Apr 9 dioxide 45.0 informati 2016 1:40 [Partial on in PM pressure] source in data Arterial blood pH of 7.35 - MMOL/L Normal Apr 12 Arterial 7.45 2017 1:40 blood CRITICAL PM RESULTS RESU LTS CALLED TO: 04/12/17 1412 Jenny on,Coby Oxygen 80 - 100 MMHG Low No Apr 12 [Partial inform2016 1:40 pressure] on in PM in source Arterial data blood Oxygen 90 - 100 % Normal No Apr 12 saturatio 2016 1:40 n.calcula on in PM nena from source oxygen data partial pressure in Arterial blood Carbon 23 - 27 MMOL/L High No Apr 12 dioxide, 2016 1:40 total on in PM [Moles/vo source lume] in data Arterial blood Streptococcus pyogenes Ag [Presence] in Unspecified specimen Observa Value Referen Units Interpr Notes Date tion ce etation Range Strepto NEGATIV No No No No Apr 12 coccus E informa informa informa informa 2017 pyogene tion in tion in tion in tion in 1:30 PM s Ag source source source source [Presen data data data data ce] in Unspeci fied specime n Influenza virus A+B Ag [Presence] in Unspecified specimen Observa Value Referen Units Interpr Notes Date tion ce etation Range Influen NOT NOT No No No Apr 12 za DETECTE DETECTD informa informa informa 2017 virus A D tion in tion in tion in 1:10 PM Ag source source source [Presen data data data ce] in Unspeci fied specime n Influen NOT NOT No No No Apr 12 za DETECTE DETECTD informa informa informa 2017 virus B D tion in tion in tion in 1:10 PM Ag source source source [Presen data data data ce] in Unspeci fied specime n CBC W Auto Differential panel in Blood Observa Value Referen Units Interpr Notes Date tion ce etation Range Basophils 0 - 0.2 K/MM3 Normal No Apr 122016 [#/volume on in 12:40 PM ] in source Blood by data Automated count Basophils 0.1 - 2.0 % Normal No Apr 12 /2016 leukocyte on in 12:40 PM s in source Blood by data Automated count Eosinophi 0.0 - 0.4 K/mm3 Normal No Apr 12 ls 2016 [#/volume on in 12:40 PM ] in source Blood by data Automated count Eosinophi 0.1 - % Normal No Apr 12 ls/100 12.0 inform2016 leukocyte on in 12:40 PM s in source Blood by data Automated count Granulocy 1.3 - 8.0 K/mm3 Normal No Apr 12 denice informati 2016 [#/volume on in 12:40 PM ] in source Blood by data Automated count Granulocy 37.0 - % Normal No Apr 12 denice/100 80.0 2016 leukocyte on in 12:40 PM s in source Blood by data Automated count Hematocri 42.0 - % Low alert Apr 12 t [Volume 52.0 2017 CRITICAL 12:40 PM Fraction] RESULTS of Blood RESU LTS CALLED TO: BRANDO.NARC 04/12/17 1257 Steven Mercado eduardo Hemoglobi 14.1 - g/dL Low alert Apr 12 n 18.0 2016 [Mass/vol CRITICAL 12:40 PM ume] in RESULTS Blood RESU LTS CALLED TO: BRANDO.NARC 04/12/17 1257 RogelioSteven gonzales eduardo Lymphocyt 0.7 - 4.5 K/mm3 Low No Apr 12 es inform2016 [#/volume on in 12:40 PM ] in source Unspecifi data ed specimen by Automated count Lymphocyt 10 - 50 % Normal No Apr 12 es 2016 [#/volume on in 12:40 PM ] in source Unspecifi data ed specimen by Automated count Erythrocy 27 - 31.2 pg Normal No Apr 12 te mean 2016 corpuscul on in 12:40 PM ar source hemoglobi data n [Entitic mass] Erythrocy 31.8 - g/dl Normal No Apr 12 te mean 35.4 2016 corpuscul on in 12:40 PM ar source hemoglobi data n concentra tion [Mass/vol ume] by Automated count Erythrocy 82.2 - fl Normal No Apr 12 te mean 97.8 2016 corpuscul on in 12:40 PM ar volume source [Entitic data volume] by Automated count Monocytes 0.1 - 1.0 K/mm3 Normal No Apr 12 inform2016 [#/volume on in 12:40 PM ] in source Blood by data Automated count Monocytes 1.7 - 9.3 % High No [facility] 9 /100 2016 leukocyte on in 12:40 PM s in source Blood by data Automated count Platelet 7.4 - fl High No [place] 9 mean 10.4 2016 volume on in 12:40 PM [Entitic source volume] data in Blood by Automated count Platelets 142 - 424 K/mm3 Low No [facility] 9 inform2016 [#/volume on in 12:40 PM ] in source Blood data Erythrocy 4.6 - 6.2 M/mm3 Low No Apr 9 denice 2016 [#/volume on in 12:40 PM ] in source Amniotic data fluid Erythrocy 11.5 - % Normal No Apr 9 te 17.5 2016 distribut on in 12:40 PM ion width source [Entitic data volume] by Automated count Leukocyte 4.8 - K/MM3 Low No [facility] 9 s 10.8 2016 [#/volume on in 12:40 PM ] in source Blood data Differential panel, method unspecified - Observa Value Referen Units Interpr Notes Date tion ce etation Range Neutrophi 0 - 8 % Normal No [facility] 9 ls.band 2017 form/100 on in 12:40 PM leukocyte source s in data Blood by Automated count Eosinophi 0 - 3 % High No [place] 9 ls/100 2016 leukocyte on in 12:40 PM s in source Blood by data Manual count LYMPH 17 10 - 50 % Normal No [facility] 9 2016 tion in 12:40 source PM data Monocytes 2 - 9 % High No [place] 9 /100 2016 leukocyte on in 12:40 PM s in source Blood by data Automated count Platele MOD No No No No [facility] 9 ts DECREAS informa informa informa informa 2016 [Presen E tion in tion in tion in tion in 12:40 ce] in source source source source PM Blood data data data data by Light microsc opy Neutrophi 42 - 76 % Normal No [facility] 9 ls 2016 [#/volume on in 12:40 PM ] in source Blood by data Automated count Cells No #CELLS No No [facility] 9 Counted informati ati 2016 Total [#] on in on in on in 12:40 PM in Blood source source source data data data Lactate [Moles/volume] in Blood Observa Value Referen Units Interpr Notes Date tion ce etation Range Lactate 0.4 - 2.0 mmol/L Normal No [facility] 9 [Moles/vo informati 2017 lume] in on in 12:40 PM Blood source data Comprehensive metabolic 2000 panel in Serum or Plasma Observa Value Referen Units Interpr Notes Date tion ce etation Range Albumin/G 1.1 - 1.8 No Low No [facility] 9 lobulin informati informati 2017 [Mass on in on in 12:40 PM ratio] in source source Serum or data data Plasma Albumin 3.4 - 5.0 gm/dL Low No Apr 9 [Mass/vol informati 2017 ume] in on in 12:40 PM Serum or source Plasma data Alkaline 46 - 116 U/L Normal No Apr 9 phosphata informati 2016 se on in 12:40 PM [Enzymati source c data activity/ volume] in Serum or Plasma Bilirubin 0.2 - 1.0 mg/dL Normal No [facility] 9 .total informati 2016 [Mass/vol on in 12:40 PM ume] in source Serum or data Plasma Urea 7 - 18 mg/dL Normal No [facility] 9 nitrogen informati 2017 [Mass/vol on in 12:40 PM ume] in source Serum or data Plasma Calcium 8.5 - mg/dL Normal No [facility] 9 [Mass/vol 10.1 informati 2016 ume] in on in 12:40 PM Serum or source Plasma data Chloride 98 - 107 mmoL/L Normal No [facility] 9 [Moles/vo informati 2017 lume] in on in 12:40 PM Serum or source Plasma data Carbon 21.0 - mmoL/L Normal No Apr 9 dioxide, 32.0 informati 2017 total on in 12:40 PM [Moles/vo source lume] in data Serum or Plasma Creatinin 0.70 - mg/dL High No Apr 9 e 1.30 informati 2017 [Mass/vol on in 12:40 PM ume] in source Serum or data Plasma Creatinin 50 - 200 ML/MIN Normal No Apr 9 e renal informati 2017 clearance on in 12:40 PM source predicted data by Cockcroft -Gault formula Estimated >60 ML/MIN No REFERENCE [facility] 9 informati RANGE: 2017 glomerula on in >60 12:40 PM r source ML/MIN/1. filtratio data 73 SQUARE n rate METERSIf (GF this patient is -A merican, then multiply theresult by 1.210. Globulin 1.3 - 3.2 gm/dL High No Apr 9 [Mass/vol informati 2016 ume] in on in 12:40 PM Serum source data Glucose 74 - 106 mg/dL Normal No Apr 9 [Mass/vol informati 2016 ume] in on in 12:40 PM Serum or source Plasma data Potassium 3.5 - 5.1 mmoL/L Normal No Apr 12 inform2016 [Moles/vo on in 12:40 PM lume] in source Serum or data Plasma Sodium 136 - 145 mmoL/L Normal No Apr 12 [Moles/vo informati 2016 lume] in on in 12:40 PM Serum or source Plasma data Aspartate 15 - 37 U/L Low No Apr 12 informati 2016 aminotran on in 12:40 PM sferase source [Enzymati data c activity/ volume] in Serum or Plasma Alanine 12 - 78 U/L Normal No Apr 12 aminotran informati 2016 sferase on in 12:40 PM [Enzymati source c data activity/ volume] in Serum or Plasma Protein 6.4 - 8.2 gm/dL Normal No Apr 12 [Mass/vol informati 2016 ume] in on in 12:40 PM Serum or source Plasma data Hemoglobin.gastrointestinal [Presence] in Stool Observa Value Referen Units Interpr Notes Date tion ce etation Range Hemoglo NEGATIV NEG No No No [facility] 1 bin.gas E informa informa informa 2017 trointe tion in tion in tion in 12:25 stinal source source source PM [Presen data data data ce] in Stool --1st specime n Amylase [Enzymatic activity/volume] in Serum or Plasma Observa Value Referen Units Interpr Notes Date tion ce etation Range Amylase 25 - 115 U/L Normal No [facility] 1 [Enzymati informati 2017 c on in 10:34 AM activity/ source volume] data in Serum or Plasma Comprehensive metabolic 2000 panel in Serum or Plasma Observa Value Referen Units Interpr Notes Date tion ce etation Range Albumin/G 1.1 - 1.8 No Low No [facility] 1 lobulin informati informati 2016 [Mass on in on in 10:34 AM ratio] in source source Serum or data data Plasma Albumin 3.4 - 5.0 gm/dL Low No [facility] 1 [Mass/vol informati 2016 ume] in on in 10:34 AM Serum or source Plasma data Alkaline 46 - 116 U/L Normal No [facility] 1 phosphata informati 2017 se on in 10:34 AM [Enzymati source c data activity/ volume] in Serum or Plasma Bilirubin 0.2 - 1.0 mg/dL Normal No [facility] 1 .total informati 2017 [Mass/vol on in 10:34 AM ume] in source Serum or data Plasma Urea 7 - 18 mg/dL Normal No [facility] 1 nitrogen informati 2017 [Mass/vol on in 10:34 AM ume] in source Serum or data Plasma Calcium 8.5 - mg/dL Low No [facility] 1 [Mass/vol 10.1 informati 2017 ume] in on in 10:34 AM Serum or source Plasma data Chloride 98 - 107 mmoL/L Normal No [facility] 1 [Moles/vo informati 2017 lume] in on in 10:34 AM Serum or source Plasma data Carbon 21.0 - mmoL/L Normal No [facility] 1 dioxide, 32.0 informati 2017 total on in 10:34 AM [Moles/vo source lume] in data Serum or Plasma Creatinin 0.70 - mg/dL High No [facility] 1 e 1.30 informati 2017 [Mass/vol on in 10:34 AM ume] in source Serum or data Plasma Creatinin 50 - 200 ML/MIN Normal No [facility] 1 e renal informati 2017 clearance on in 10:34 AM source predicted data by Cockcroft -Gault formula Estimated >60 ML/MIN No REFERENCE [facility] 1 informati RANGE: 2017 glomerula on in >60 10:34 AM r source ML/MIN/1. filtratio data 73 SQUARE n rate METERSIf (GF this patient is -A merican, then multiply theresult by 1.210. Globulin 1.3 - 3.2 gm/dL High No [facility] 1 [Mass/vol informati 2017 ume] in on in 10:34 AM Serum source data Glucose 74 - 106 mg/dL High No [facility] 1 [Mass/vol informati 2017 ume] in on in 10:34 AM Serum or source Plasma data Potassium 3.5 - 5.1 mmoL/L Normal No [facility] 1 informati 2017 [Moles/vo on in 10:34 AM lume] in source Serum or data Plasma Sodium 136 - 145 mmoL/L Normal No [facility] 1 [Moles/vo informati 2017 lume] in on in 10:34 AM Serum or source Plasma data Aspartate 15 - 37 U/L Low No Apr 042016 aminotran on in 10:34 AM sferase source [Enzymati data c activity/ volume] in Serum or Plasma Alanine 12 - 78 U/L Normal No Apr 04 aminotran 2016 sferase on in 10:34 AM [Enzymati source c data activity/ volume] in Serum or Plasma Protein 6.4 - 8.2 gm/dL Normal No Apr 04 [Mass/vol 2016 ume] in on in 10:34 AM Serum or source Plasma data Lipase [Enzymatic activity/volume] in Serum or Plasma Observa Value Referen Units Interpr Notes Date tion ce etation Range Lipase 73 - 393 U/L Normal No Apr 04 [Enzymati 2016 c on in 10:34 AM activity/ source volume] data in Serum or Plasma CBC W Auto Differential panel in Blood Observa Value Referen Units Interpr Notes Date tion ce etation Range Basophils 0 - 0.2 K/MM3 Normal No Apr 042016 [#/volume on in 10:34 AM ] in source Blood by data Automated count Basophils 0.1 - 2.0 % Normal No [facility] 1 /100 2016 leukocyte on in 10:34 AM s in source Blood by data Automated count Eosinophi 0.0 - 0.4 K/mm3 Normal No Apr 04 ls 2016 [#/volume on in 10:34 AM ] in source Blood by data Automated count Eosinophi 0.1 - % Normal No Apr 04 ls/100 12.0 2016 leukocyte on in 10:34 AM s in source Blood by data Automated count Granulocy 1.3 - 8.0 K/mm3 Normal No Apr 04 denice 2016 [#/volume on in 10:34 AM ] in source Blood by data Automated count Granulocy 37.0 - % High No Apr 04 denice/100 80.0 2016 leukocyte on in 10:34 AM s in source Blood by data Automated count Hematocri 42.0 - % Low No Apr 04 t [Volume 52.0 2016 on in 10:34 AM Fraction] source of Blood data Hemoglobi 14.1 - g/dL Low No Apr 04 n 18.0 2016 [Mass/vol on in 10:34 AM ume] in source Blood data Lymphocyt 0.7 - 4.5 K/mm3 Low No [facility] 1 es informati 2016 [#/volume on in 10:34 AM ] in source Unspecifi data ed specimen by Automated count Lymphocyt 10 - 50 % Normal No [facility] 1 es inform2016 [#/volume on in 10:34 AM ] in source Unspecifi data ed specimen by Automated count Erythrocy 27 - 31.2 pg Normal No [facility] 1 te mean inform2016 corpuscul on in 10:34 AM ar source hemoglobi data n [Entitic mass] Erythrocy 31.8 - g/dl Normal No Apr 04 te mean 35.4 inform2016 corpuscul on in 10:34 AM ar source hemoglobi data n concentra tion [Mass/vol ume] by Automated count Erythrocy 82.2 - fl Normal No Apr 04 te mean 97.8 inform2016 corpuscul on in 10:34 AM ar volume source [Entitic data volume] by Automated count Monocytes 0.1 - 1.0 K/mm3 Normal No [facility] 1 informati 2016 [#/volume on in 10:34 AM ] in source Blood by data Automated count Monocytes 1.7 - 9.3 % Normal No [facility] 1 /100 inform2016 leukocyte on in 10:34 AM s in source Blood by data Automated count Platelet 7.4 - fl Normal No Apr 04 mean 10.4 inform2016 volume on in 10:34 AM [Entitic source volume] data in Blood by Automated count Platelets 142 - 424 K/mm3 No No [facility] 1 informati informati 2016 [#/volume on in on in 10:34 AM ] in source source Blood data data Erythrocy 4.6 - 6.2 M/mm3 Low No Apr 1 denice informati 2016 [#/volume on in 10:34 AM ] in source Amniotic data fluid Erythrocy 11.5 - % Normal No Apr 04 te 17.5 informati 2016 distribut on in 10:34 AM ion width source [Entitic data volume] by Automated count Leukocyte 4.8 - K/MM3 Normal No [facility] 1 s 10.8 inform2016 [#/volume on in 10:34 AM ] in source Blood data
--- NOTE | 2017-05-07 12:34 | Emergency Room Report ---
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 PT HAS BEEN SEEN MULITPLE TIMES FOR THIS PAIN. DENIES ANY INJURY BESIDES A FALL APPROX. 2 MONTHS AGO Onset of symptoms date/time:/ or onset unknown for:MEDICAL HX UNKNOWN Treatment Prior to Arrival: PT MONITORED. LEFT ARM PAIN. 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 N Clinical Suspician of Infection? N Mental Status: 1 - Regular (Normal Baseline) Sepsis Risk:Low Sepsis Risk Have you (or family members/close friends) recently traveled outside the [place]? N If Yes, where/when: Have you had exposure to infectious disease within the past month? N TB? Other? Specify: Comment The patient is sent from [facility] for LEFT upper extremity pain and swelling. This is been an ongoing problem. He says it has been there for 2-3 months. He relates it to a previous fall. 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 He has had this extensively evaluated. He has had x- rays on March 06 and March [address] scan of his wrist on March 06. He has seen Dr. Aburto for orthopedic consultation as well as other specialist. He says that he now has recurrent pain and swelling of his LEFT upper extremity for one week. He says the ulnar aspect of his wrist hurts and his fingers hurt. No recurrent trauma. Staff at [facility] called Dr. Carrera and were reportedly advised to send him to the emergency room for evaluation and treatment. ALLERGIES Coded Allergies: hydromorphone (Mild, 02/19/17) Home Medications Active Scripts Ondansetron (Zofran 4MG Odt) 4 MG PO Q8HP PRN NAUSEA AND VOMITING #10 ODT Prov: 04/04/17 Linezolid (Zyvox TABLET) 600 MG PO BID 30 Days Prov: 03/07/17 Reported Medications Aspirin 81 MG PO DAILY PRAVASTATIN SODIUM (Pravastatin Sodium) 40 MG PO QHS Trazodone Hcl (Trazodone HCl) 50 MG PO QHS Losartan Potassium (Losartan 50MG) 50 MG PO DAILY Ins Asp-Prt 70/Asp 30(Nvlogmx) (Novolog Mix 70-30 Flexpen Syrn) 25 UNITS SC 1630 APAP 300MG W/CODEINE 30MG (Acetaminophen-Cod #3 Tablet) 1 TAB PO BID Acetaminophen (Acetaminophen Extra Strength) 500 MG PO Q6HP PRN PAIN/FEVER IBUPROFEN MICRONIZED (IBUPROFEN 600MG) 600 MG PO Q6HP PRN PAIN Loperamide Hcl (Loperamide) 2 MG PO PRN PRN DIARRHEA GUAIFENESIN/DEXTROMETHORPHAN (Robafen-Dm Syrup) 5 ML PO Q4HP PRN COUGH Carvedilol (Carvedilol 6.25MG) 6.25 MG PO BID OMEGA-3 FATTY ACIDS (Fish Oil Concentrate) 1 GM PO DAILY FLUTICASONE PROPIONATE (Fluticasone 50MCG Nasal [place]) 2 SPRAY NA DAILY ONDANSETRON HCL (Zofran 4MG Tab) 4 MG PO TIDP Gabapentin (Neurontin 300MG) 300 MG PO TID Insulin Aspart, Recombinant (Novolog Flexpen) 40 UNITS SC DAILY Pioglitazone (Actos 15MG) 15 MG PO DAILY History Medical History General CAD? No Angina: Yes [place]: Yes Hypertension? Yes Hyperlipidemia? Yes CHF? Yes DVT? No PE? No COPD? No Asthma? No Anemia? No GERD? No Gastric ulcers? No GI Bleed? No Hernia? No Thyroid Problems? No Hypothyroidism? No CVA? Yes Seizures? No Diabetes? Yes Insulin Dependent: Yes Insulin Pump: No Home FSBS? Yes Renal Insuffiency? No End Stage Renal Disease? No UTI? No Stones? No BPH? No GB Disease: No Nephritic Syndrome? No Asplenia? No Hepatitis? No Sickle Cell Disease? No Arthritis? Yes Migraines? No Cataracts? Yes Glaucoma? No MRSA? Yes HIV? No TB? No Anxiety? No Depression? No Cancer? No More? Yes Additional hx: ARRHYTHMIA Immunization Hx DT/Tetanus 5-10 Years Ago Pneumonia Received In Past Surgical Hx Previous Surgery?Y Hernia Repair PACEMAKER/DEFIBRILATOR CATARACT SURGERY Family History Family Hx Diabetes Yes CAD Yes Hypertension Yes Hyperlipidemia Yes Cancer No TB No Social History Smoking Hx Smoker: Never Smoker Tobacco: No Alcohol Alcohol: No Review of Systems All Other Systems Reviewed and Negative Constitutional denies fever Musculoskeletal see HPI Physical Exam Vital Signs Vital Signs Date Time Temp Pulse Resp B/P Pulse O2 O2 Flow FiO2 Ox Delivery Rate 05/07 1336 98.1 78 16 140/80 98 05/07 1327 78 16 140/80 98 05/07 1258 98.1 82 16 139/71 95 05/07 1236 87 16 122/62 97 05/07 1145 98.1 85 16 126/57 98 General Appearance normal appearance, WD/WN, pale Eye Exam - bilateral eye normal exam, bilateral eye PERRL, bilateral eye EOMI Ear, Nose, Throat hearing grossly normal, normal ENT inspection Neck normal inspection, non-tender, supple, full range of motion Respiratory Status Yes: trachea midline, chest symmetrical, non tender chest. No: respiratory distress. Lung Sounds bilateral: normal breath sounds, lungs clear. Cardiovascular normal exam, regular rate/rhythm, no peripheral edema, no gallop, no JVD, no murmur, no rub, normal peripheral pulses Peripheral Pulses Pulses normal Yes Gastrointestinal normal bowel sounds, normal exam, non tender, soft, no organomegaly Extremities mild pitting edema from LEFT elbow down to LEFT fingers. Tenderness of his forearm, ulnar aspect of his wrist, and fingers. No erythema or heat. No detectable joint effusions. Normal pulses, capillary refill and sensation distally. Range of motion mildly limited by pain and edema. No cords. Neurologic alert, normal exam, no motor/sensory deficits, oriented x 3 Mental status normal mood/affect Skin intact, normal color, warm/dry Medical Decision Making LABS/Meds/Orders Pt receiving controlled substance in ED? No Results/Orders Current Medication Orders Sig/Manish Start time Last Medication Dose Route Stop Time Status Admin Prednisone 40 MG ONCE ONE 05/07 1300 DC 05/07 PO 05/07 1301 1256 Prednisone 0 .STK-MED ONE 05/07 1254 DC .ROUTE Orders Procedure Date/time Status STABILIZE JOINT 05/07 1253 Active Progress - 12:50 PM: Case discussed with Dr. Carrera. He requests the patient be given a dose of steroids and be put in a wrist splint and he will see the patient tomorrow for further evaluation and treatment. No testing needed at this time per his orders. Departure Departure Disposition DC Home or Self Care(routine) Clinical Impression Primary Impression: Left wrist pain Secondary Impressions: Edema of upper extremity, Left hand pain Condition STABLE Referrals Deandre PACE,Mann Ochoa (Family) Additional Instructions Dr. Carrera will see you tomorrow. ED Critical Care Critical Care No at [id number]
[2017-05-07 13:36] VITALS: BP 140/80
== END 2017-05-07 13:37 | disposition home or self-care (01) ==
LOC: ER 11:44
DX: M25.532 Pain in left wrist (principal); I10 Essential (primary) hypertension

== ENCOUNTER → 2017-06-17 | Outpatient (CLI) | payer MEDICARE, MEDICAID ==
[~2017-06-17] MED LIST changes: +FAMOTIDINE 20MG20 MG PO; +KEPPRA500 MG PO; +LEVEMIR FLEX100 U/ML SC
[2017-06-17 16:56] LABS: STOOL OCCULT BLOOD NEGATIVE (NEG)
== END ==
LOC: LAB 16:43
PROVIDERS: Nurse Practitioner
DX: D64.9 Anemia, unspecified (principal); R53.83 Other fatigue
CPT/HCPCS: G0328

== ENCOUNTER 2017-07-20 22:21 | Emergency (ER) | payer MEDICARE, MEDICAID ==
[~2017-07-20] VITALS: Ht 162.6 cm; Wt 70.8 kg
--- NOTE | 2017-07-20 22:35 | Emergency Room Report ---
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 GIVEN ZOFRAN MASTER CONTROL ENGINEER AT CUSTODIAL. 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 N Clinical Suspician of Infection? N Mental Status: 1 - Regular (Normal Baseline) Sepsis Risk:Low Sepsis Risk Have you (or family members/close friends) recently traveled outside the [place]? N If Yes, where/when: Have you had exposure to infectious disease within the past month? N TB? Other? Specify: Comment The patient is brought in by ambulance from [facility]. He says he developed vomiting, numerous times this evening. He had some burning abdominal discomfort. He says his nausea and abdominal pain are currently relieved. No diarrhea or chest pain. No fever. No urinary symptoms. ALLERGIES Coded Allergies: hydromorphone (Mild, 02/19/17) rofecoxib (From VIOXX) (07/20/17) tramadol (07/20/17) Home Medications Active Scripts Ondansetron (Zofran 4MG Odt) 4 MG PO Q8HP PRN NAUSEA AND VOMITING #10 ODT Prov: 04/04/17 Reported Medications Aspirin 81 MG PO DAILY PRAVASTATIN SODIUM (Pravastatin Sodium) 40 MG PO QHS Trazodone Hcl (Trazodone HCl) 50 MG PO QHS Losartan Potassium (Losartan 50MG) 50 MG PO DAILY APAP 300MG W/CODEINE 30MG (Acetaminophen-Cod #3 Tablet) 1 TAB PO BID Acetaminophen (Acetaminophen Extra Strength) 500 MG PO Q6HP PRN PAIN/FEVER IBUPROFEN MICRONIZED (IBUPROFEN 600MG) 600 MG PO Q6HP PRN PAIN Loperamide Hcl (Loperamide) 2 MG PO PRN PRN DIARRHEA GUAIFENESIN/DEXTROMETHORPHAN (Robafen-Dm Syrup) 5 ML PO Q4HP PRN COUGH Carvedilol (Carvedilol 6.25MG) 6.25 MG PO BID OMEGA-3 FATTY ACIDS (Fish Oil Concentrate) 1 GM PO DAILY FLUTICASONE PROPIONATE (Fluticasone 50MCG Nasal [place]) 2 SPRAY NA DAILY ONDANSETRON HCL (Zofran 4MG Tab) 4 MG PO TIDP Gabapentin (Neurontin 300MG) 300 MG PO TID Pioglitazone (Actos 15MG) 15 MG PO DAILY Insulin Detemir (Levemir Flextouch) 40 Dose SC QHS Famotidine (Famotidine 20MG) 20 MG PO BID Insulin Aspart, Recombinant (Novolog Flexpen) 14 UNITS SC BREAKFAST Insulin Aspart, Recombinant (Novolog Flexpen) 12 UNITS SC LUNCH Levetiracetam (Keppra) 500 MG PO QHS History Medical History General CAD? No Angina: Yes [place]: Yes Hypertension? Yes Hyperlipidemia? Yes CHF? Yes DVT? No PE? No COPD? No Asthma? No Anemia? No GERD? No Gastric ulcers? No GI Bleed? No Hernia? No Thyroid Problems? No Hypothyroidism? No CVA? Yes Seizures? No Diabetes? Yes Insulin Dependent: Yes Insulin Pump: No Home FSBS? Yes Renal Insuffiency? No End Stage Renal Disease? No UTI? No Stones? No BPH? No GB Disease: No Nephritic Syndrome? No Asplenia? No Hepatitis? No Sickle Cell Disease? No Arthritis? Yes Migraines? No Cataracts? Yes Glaucoma? No MRSA? Yes HIV? No TB? No Anxiety? No Depression? No Cancer? No More? Yes Additional hx: ARRHYTHMIA Immunization Hx DT/Tetanus 5-10 Years Ago Pneumonia Received In Past Surgical Hx Previous Surgery?Y Hernia Repair PACEMAKER/DEFIBRILATOR CATARACT SURGERY Family History Family Hx Diabetes Yes CAD Yes Hypertension Yes Hyperlipidemia Yes Cancer No TB No Social History Smoking Hx Smoker: Never Smoker Tobacco: No Alcohol Alcohol: No Review of Systems All Other Systems Reviewed and Negative Constitutional denies fever Respiratory denies shortness of breath Cardiovascular denies chest pain Gastrointestinal abdominal pain, denies diarrhea, nausea, vomiting Genitourinary denies: dysuria, frequency. Physical Exam Vital Signs Vital Signs Date Time Temp Pulse Resp B/P Pulse O2 O2 Flow FiO2 Ox Delivery Rate 07/21 0245 98.9 71 20 147/75 94 07/21 0118 63 20 138/66 100 07/21 0003 57 20 152/81 100 07/20 2256 63 20 152/76 100 07/20 2222 98.9 68 20 152/ 100 General Appearance normal appearance, WD/WN Eye Exam - bilateral eye normal exam, bilateral eye PERRL, bilateral eye EOMI Ear, Nose, Throat hearing grossly normal, normal ENT inspection Neck normal inspection, non-tender, supple, full range of motion Respiratory Status Yes: trachea midline, chest symmetrical, non tender chest. No: respiratory distress. Lung Sounds bilateral: normal breath sounds, lungs clear. Cardiovascular normal exam, regular rate/rhythm, no peripheral edema, no gallop, no JVD, no murmur, no rub, normal peripheral pulses Peripheral Pulses Pulses normal Yes Gastrointestinal normal bowel sounds, normal exam, non tender, soft, no organomegaly Extremities non-tender, normal range of motion, normal inspection Neurologic alert, [employer] II-XII nml as tested, normal exam, oriented x 3 Mental status normal mood/affect Skin intact, normal color, warm/dry Medical Decision Making LABS/Meds/Orders Pt receiving controlled substance in ED? No Results/Orders Laboratory Tests 07/21/17 0117: Troponin I < 0.02 07/20/172316: Troponin I 0.06 07/20/172316: Sodium 141, Potassium 4.4, Chloride 105, Carbon Dioxide 31, BUN 25 H, Creatinine 1.3, Estimated Creat Clear 67, Estimated GFR (MDRD) 58, Glucose 116 H, Calcium 9.1, Total Bilirubin 0.2, AST 51 H, ALT 28, Alkaline Phosphatase 78, Total Protein 7.6, Albumin 3.5, Globulin 4.1 H, Albumin/Globulin Ratio 0.9 L, Amylase 66, Lipase 185, WBC 7.0, RBC 4.41 L, Hgb 11.3 L, Hct 35.4 L, MCV 80.4 L, RDW 15.8, Plt Count 189, MPV 8.6, Gran % 66.4, Gran # 4.7, Lymphocytes % 21.7, Monocytes % 7.8, Eosinophils % 3.6, Basophils % 0.5, Lymphocytes # 1.5, Monocytes # 0.6, Eosinophils # 0.3, Basophils # 0.0, PUBS MCHC 31.7 L, MCH 25.5 L Current Medication Orders Sig/Manish Start time Last Medication Dose Route Stop Time Status Admin Sodium Chloride 1,000 ML .STK-MED ONE 07/20 2333 DC IV Sodium Chloride 10 ML PRN PRN 07/20 2245 DCD IV 07/21 2231 Sodium Chloride 1,000 ML .Q1H1M 07/20 2245 DC 07/21 IV 07/20 2345 0000 Sodium Chloride 10 ML PRN PRN 07/20 2245 DCD IV 07/21 2231 Orders Procedure Date/time Status DIET-NOTHING BY MOUTH 07/21 B Active TROPONIN I 07/[address] ABD & PELVIS W/O CONTRAST 07/20 232 Active TROPONIN I 07/20 2233 Complete ELECTROCARDIOGRAM REQUEST 07/[address] ABD/PELVIS REQ 07/20 223 Active IV SALINE LOCK 07/20 223 Active URINALYSIS/COMPLETE 07/20 2232 Active LIPASE 07/20 223 Complete CBC WITH AUTO DIFF 07/20 2232 Complete CHEM 12 PROFILE 07/202 Complete AMYLASE 07/20 2232 Complete 12 LEAD EKG-JANUSZ (INITIAL) 07/20 UNK Active CM/EKG CM/EKG Comments EKG interpreted by Kristian Pascual MD: Rhythm: Ventricular paced rhythm Rate: 64 No evidence of acute ischemia or injury XRAY/CT/US XRAY/CT/US CT abdomen, pelvis Comment CT scan interpreted by ad radiologist. Faxed report received and reviewed: No acute abnormality Progress - 12:45 AM: troponin upper limits normal. 2nd troponin ordered. Patient asymptomatic. No pain or nausea/vomiting since arrival in ED. Departure Departure Disposition DC Home or Self Care(routine) Clinical Impression Primary Impression: Vomiting Qualifiers: Vomiting type: unspecified Vomiting Intractability: non-intractable Nausea presence: with nausea Qualified Code: R11.2 - Nausea with vomiting, unspecified Condition STABLE Referrals Deandre PACE,Mann Ochoa (Family) Patient Instructions DI for Vomiting -- Adult Additional Instructions Additional instructions for ABDOMINAL PAIN: Return immediately if worsening abdominal pain, vomiting, shortness of breath, fever, vomiting of blood or abdominal distention. ED Critical Care Critical Care No at 0252
[2017-07-20 23:23] LABS: LYMPH # 1.5 K/mm3 (0.7-4.5); LYMPH % 21.7 % (10-50)
[2017-07-20 23:27] LABS: HEMOGLOBIN 11.3 g/dL (14.1-18.0)
[2017-07-21 02:45] VITALS: BP 147/75
--- NOTE | 2017-07-21 11:24 | RADIOLOGY REPORT PS360 ---
CT ABD PELVIS W/O CONTRAST HISTORY: VOMITINGnausea Patient Age: 52 years: Male Ordering Physician: Kristian Pascual MD TECHNIQUE: Helical CT scans abdomen and pelvis with no oral nor IV contrast utilized. Sagittal coronal reconstruction CT workstation. COMPARISON : CT abdomen and pelvis 04/04/2017 FINDINGS Lung bases appear clear. No acute findings. Mild cardiomegaly. Pacemaker. Abdomen pelvis. Lack of oral and IV contrast decreases sensitivity. Liver, spleen, pancreas adrenals unremarkable. Gallbladder. Suspect cholelithiasis Appears to be multiple noncalcified gallstones within gallbladder. Gallbladder wall upper normal thickness GI tract.: Appendix normal. Terminal ileum satisfactory. Moderate stool right colon transverse colon with minimal stool left colon. A few developing diverticuli suspected sigmoid and left colon. Upper normal wall thickness descending colon most likely reflects lack of distention. No free fluid nor free air. Small bowel unremarkable tract.: No urinary tract calculi nor obstruction. Mild stranding about the right kidney more so than left is similar to previous studies and likely reflects chronic changes. Doubt acute feature. Ureters satisfactory unremarkable right ureter is slightly more generous than the left but no discrete calculi and bladder unremarkable. Slightly generous prostate measures up to 4.3 cm maximum transverse dimension.. Osseous. No acute osseous findings or lesions. Transitional vertebra at lumbosacral junction with Sacralization on left. Stable appearance. IMPRESSION. 1. No acute findings abdomen pelvis 2. Cholelithiasis. Suggest gallbladder ultrasound follow-up if right upper quadrant symptoms 3. Moderate stool throughout the right and transverse colon. 4. Minimal stranding about the kidneys most notable the right as appears stable & unchanged since prior studies and most likely reflecting chronic changes. Doubt acute Renal process. However may benefit from correlation with urinalysis particularly if appropriate symptoms..
== END 2017-07-21 02:46 | disposition home or self-care (01) ==
LOC: ER 22:21
PROVIDERS: Emergency Medicine
DX: R11.2 Nausea with vomiting, unspecified (principal); E78.5 Hyperlipidemia, unspecified; I11.0 Hypertensive heart disease with heart failure; I50.9 Heart failure, unspecified; E11.9 Type 2 diabetes mellitus without complications; Z95.0 Presence of cardiac pacemaker; Z79.4 Long term (current) use of insulin; Z79.891 Long term (current) use of opiate analgesic; Z79.899 Other long term (current) drug therapy

== ENCOUNTER → 2017-08-07 | Outpatient (CLI) | payer MEDICARE, MEDICAID ==
--- NOTE | 2017-08-07 17:51 | RADIOLOGY REPORT PS360 ---
US RUQ-(ABD LTD)1ORGAN/QUAD/FU HISTORY: ABD PAIN right upper quadrant pain and history of gallstones on CT scan Patient Age: 52 years: Male Ordering Physician: Juan Lindsay MD TECHNIQUE: ] Groin ultrasound COMPARISON :CT abdomen pelvis July 23, 2017 FINDINGS . Difficult to visualize structures due to overlying gas. Pancreas. Poorly seen obscured by overlying gas but head and body of pancreas grossly unremarkable. Obscured. Liver. No focal lesions. No biliary ductal dilatation. Common duct normal diameter 4.1 mm at hilum of liver Gallbladder abnormal. Gallstones and prominent debris filling a partially contracted gallbladder . Diffuse wall thickening. Findings suggestive of probable chronic cholecystitis. Gallstones were evident on recent CT abdomen. Right kidney 9.8 cm length. No hydronephrosis nor mass. Borderline thinning of cortex .i MPRESSION: ======= \ 1. Abnormal Gallbladder.:. Gallstones, with prominent debris & sludge filling partially contracted gallbladder. Diffuse gallbladder wall thickening. Common duct normal.
== END ==
LOC: RAD 09:17
DX: R10.11 Right upper quadrant pain (principal); R11.0 Nausea